=== PATIENT | male | born 1975 | race Caucasian/White ===

== ENCOUNTER → 2017-04-14 | Outpatient (CLI) | payer OTHER ==
[~2017-04-14] MED LIST: LSN/2025 PO; NAPR1TAB9 PO; PRLSR20 PO; TRAM-10 PO
== END | disposition home or self-care (01) ==
LOC: C.LABSPEC 11:28
DX: M25.40 Effusion, unspecified joint (principal)

== ENCOUNTER 2017-04-16 15:22 | Inpatient (IN) | payer OTHER ==
[~2017-04-16] VITALS: Ht 180.3 cm; Wt 123.0 kg
--- NOTE | 2017-04-16 15:33 | HISTORY & PHYSICAL EXAMINATION ---
DATE OF ADMISSION: 04/16/2017 CHIEF COMPLAINT: Right knee pain and swelling. HISTORY OF PRESENT ILLNESS: The patient is a 41-year-old male presented to our office recently for evaluation of right knee pain and swelling. He did not have a significant injury. 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 Dr. Martinez aspirated his knee and the culture demonstrates rare staph aureus as well as a white count of approximately 80,000. The patient was seen again in our office today and Dr. Martinez recommending urgent admission to the hospital for IV antibiotics and arthroscopic I&D tomorrow. PAST MEDICAL HISTORY: Hypertension, osteoarthritis, obesity, and acid reflux. PAST SURGICAL HISTORY: Neck surgery, back surgery, ankle surgery, wrist surgery, and knee surgery. MEDICATIONS: Lisinopril 20 mg daily and omeprazole 20 mg daily. ALLERGIES: INCLUDE KEFLEX. SOCIAL HISTORY AND REVIEW OF SYSTEMS: Noncontributory. PHYSICAL EXAMINATION: GENERAL: Well-nourished, well-developed, obese male who appears stated age. HEENT: Normocephalic, atraumatic, extraocular movements intact, oropharynx pink and moist. NECK: Supple without adenopathy. LUNGS: Clear to auscultation bilaterally. HEART: Regular rate and rhythm. ABDOMEN: Soft, nontender, nondistended, obese. EXTREMITIES: The upper extremities are within normal limits. The right knee is moderately painful with recurrent effusion. ASSESSMENT: Septic right knee pus, possible methicillin-resistant staphylococcus aureus infection. PLAN: The above discussed with the patient. Risks versus benefits were discussed. Consent was obtained. The patient's primary care physician is Dr. Green from [facility]. He will be admitted to the hospital. We will consult pharmacy for vancomycin dosing. We will consult infectious disease. We will plan on arthroscopic I&D tomorrow and proceed as indicated.
[2017-04-16 16:07] VITALS: BP 144/86; PULSE 109; TEMP 36.8; O2SAT 95
[2017-04-16] MEDS ORDERED: NURSING VERBAL MED ORDER ONE (16:15)
[2017-04-16] MEDS ORDERED: ONDANSETRON INJ 2 MG/ML 2 ML VIAL IV PRN (16:30)
[2017-04-16] MEDS ORDERED: ACETAMINOPHEN 500 MG TAB PO PRN (16:30)
[2017-04-16] MEDS ORDERED: PATIENT'S HEIGHT AND/OR WEIGHT NEEDED SCH (16:30)
[2017-04-16 16:36] VITALS: BP 144/86; PULSE 109; TEMP 36.8; Ht 180.3 cm; Wt 123.0 kg
[2017-04-16 16:40] VITALS: O2SAT 95
[2017-04-16] MEDS ORDERED: VANCOMYCIN CONSULT ACTIVE PRN (16:45)
[2017-04-16 17:34] LABS: CREATININE 1.02 mg/dl (0.60-1.40)
[2017-04-16] MEDS ORDERED: VANCOMYCIN INJ 2,500 MG in SODIUM CHLORIDE 0.9% 500ML 500 ML IV ONE (17:45)
--- NOTE | 2017-04-16 18:58 | Pharmacy Progress Note ---
Pharmacy Antibiotic Consult Date of Service: Apr 16, 2017. Pharmacy Dosing Scope Pharmacy is consulted to initiate vancomycin IV dosing therapy, order appropriate labs and adjust drug dose/frequency. Subjective The patient is a 41 year old male admitted on Apr 16, 2017 at 15:37. Objective Height (Feet): 5 Height (Inches): 11.00 Weight (Kilograms): 123.000 Lab Results (24hrs): Test 04/16/17 16:53 Creatinine 1.02 mg/dl (0.60-1.40) Est Creatinine Clear Calc Drug Dose 127.2 ml/min Estimated GFR () 105.3 Estimated GFR (Non- 90.9 Micro Results: Date/Time Source Procedure Growth Status 04/16/17 18:15 Nasal MRSA DNA Surveillance Screen Pending Received Assessment & Plan Assessment: 41 yo male direct admit from Dr. Martinez's office Cultures from knee aspirate growing MSSA (sensitivities resulted ~1130 today) Plan for arthroscopic I&D tomorrow Patient with keflex allergy- per patient rxn was swelling/hives as a child, could not find record of any cephalosporins/pcns administration ID consulted, possible deescalation? Plan: Loading dose: 2500 mg (20mg/kg) IV X 1 dose then: 1500 mg ( 12mg/kg) IV every 8 hours. Population PK: SCr 1.02, CrCl age max 114 ml/min, ke 0.75063, t1/2 ~7 hrs Patient at risk for accumulation with BMI > 35 Goal trough level estimate: between 15-20 mcg/mL. Trough level ordered for 04/18 @ 0030 Pharmacy will continue to follow and will adjust dose/frequency as necessary. Thank you
[2017-04-16] MEDS: OXYCODONE HCL IR 5 MG TAB (IMMEDIATE RELEASE) PO PRN (20:48)
[2017-04-16 23:26] VITALS: BP 142/80; PULSE 94; TEMP 37; O2SAT 96
[2017-04-17] VITALS (8 sets, daily range): BP systolic 108–145; BP diastolic 65–85; PULSE 62–89; TEMP 36.5–36.8; O2SAT 93–100
[2017-04-17] MEDS: SODIUM CHLORIDE 0.9% 1000ML 1,000 ML IV SCH ×2 (00:06→08:26)
[2017-04-17] MEDS: VANCOMYCIN INJ 1,500 MG in SODIUM CHLORIDE 0.9% 500ML 500 ML IV SCH ×3 (01:08→17:34)
[2017-04-17] MEDS: OXYCODONE HCL IR 5 MG TAB (IMMEDIATE RELEASE) PO PRN ×3 (01:13→19:40)
[2017-04-17] MEDS ORDERED: MoRPHine SULFATE 2 MG/ML CARP ONE (08:07)
[2017-04-17] MEDS ORDERED: NURSING VERBAL MED ORDER ONE ×2 (08:15→18:00)
[2017-04-17] MEDS ORDERED: MoRPHine SULFATE 2 MG/ML CARP IV PRN (08:15)
[2017-04-17] MEDS: LISINOPRIL 20 MG TAB PO SCH (08:19)
[2017-04-17] MEDS: PANTOprazole SOD 40 MG TAB PO SCH (08:20)
[2017-04-17 08:27] LABS: CREATININE 0.82 mg/dl (0.60-1.40)
--- NOTE | 2017-04-17 10:32 | Medical Consult ---
Consultation Date of Consultation: Apr 17, 2017. Attending Physician: Tyrel Martinez M.D. Reason for Consultation: Septic right knee History of Present Illness 41-year-old male with history of hypertension, GERD, otherwise in good health, status post right ankle and foot surgery in the summer of last year, subsequently developed recurrent skin infections with MRSA requiring drainage in IV antibiotics. Recently suffered fall with pain in his right knee. Did not respond to conservative therapy, was seen by Orthopedic surgery earlier this week with aspiration done with finding of purulent fluid. Cultures now growing a methicillin sensitive Staph aureus. Patient has felt unwell, possible low-grade fever, no recurrent skin infections recently. Has had arthroscopy several times on the right knee but no hardware in place. He is awaiting arthroscopic drainage later today. Currently on IV vancomycin. Has report of significant allergy to cephalexin. Past Medical/Surgical History Medical Problems: (1) Fatigue Status: Acute (2) Heat exhaustion Status: Acute PAST MEDICAL HISTORY: Hypertension, osteoarthritis, obesity, and acid reflux. PAST SURGICAL HISTORY: Neck surgery, back surgery, ankle surgery, wrist surgery, and knee surgery. Family History Diabetes mellitus Both sides Hypertension MOTHER BROTHER Social History Smoking Status: Current Every Day Smoker Drug Use: none Marital Status: Housing Status: lives with family Occupation Status: employed Allergies Coded Allergies: Cephalexin (Verified Allergy, Unknown, UNKNOWN, 10/26/15) Current Inpatient Medications Current Inpatient Medications Medications (Trade) Dose Ordered Sig/Kb Route Start Time Stop Time Status Last Admin Dose Admin Lisinopril (Zestril Tab) 20 mg DAILY PO 04/17/17 09:00 05/17/17 08:59 Pantoprazole Sodium (Protonix Tab) 40 mg QAM PO 04/17/17 09:00 05/17/17 08:59 Oxycodone HCl (Roxicodone Immediate Rel Tab) `1-2 tabs for pain 1 tab ... Q4H PRN PO 04/16/17 16:30 04/30/17 16:29 04/17/17 01:13 10 MG Acetaminophen (Tylenol Tab) 1,000 mg Q8H PRN PO 04/16/17 16:30 05/16/17 16:29 Ondansetron HCl (Zofran Inj) 4 mg Q6H PRN IV 04/16/17 16:30 05/16/17 16:29 Sodium Chloride 1,000 ml @ 100 mls/hr Q10H IV 04/17/17 00:00 05/17/17 00:00 04/17/17 08:26 100 MLS/HR Miscellaneous Information (Consult) 1 ea UD PRN N/A 04/16/17 16:45 05/16/17 16:44 Vancomycin HCl 1500 mg/Sodium Chloride 530 ml @ 200 mls/hr Q8H IV 04/17/17 01:00 05/29/17 00:59 04/17/17 08:26 200 MLS/HR Morphine Sulfate (MoRPHine SULFATE INJ) 1-2 MG Q3H PRN PAIN 1... Q3H PRN IV 04/17/17 08:15 05/01/17 08:14 Review of Systems All systems were reviewed and are negative except as per HPI Physical Exam Date Time Temp Pulse Resp B/P (MAP) Pulse Ox O2 Delivery O2 Flow Rate FiO2 04/17/17 07:46 36.6 68 16 116/70 (85) 95 Room Air 04/17/17 07:35 Room Air 04/17/17 00:13 Room Air 04/16/17 23:26 37.0 94 18 142/80 (100) 96 Room Air 04/16/17 16:40 95 Room Air 04/16/17 16:36 36.8 109 18 144/86 Room Air 04/16/17 16:07 36.8 109 18 144/86 (105) 95 Room Air General Appearance: WD/WN, no apparent distress Head: normocephalic, atraumatic Eyes: normal inspection, EOMI, sclerae normal ENT: normal ENT inspection, hearing grossly normal, pharynx normal Neck: supple, no adenopathy, thyroid normal, trachea midline Respiratory/Chest: chest non-tender, lungs clear, normal breath sounds, no respiratory distress Cardiovascular: regular rate, rhythm, no gallop, no murmur Abdomen/GI: normal bowel sounds, non tender, soft, no organomegaly Back: normal inspection, no CVA tenderness Extremities/Musculoskelatal: no calf tenderness, normal capillary refill, + pertinent finding (Right knee swelling and increased warmth) Neurologic/Psych: alert, normal mood/affect, oriented x 3 Skin: normal color, warm/dry, no rash Lymphatic: no adenopathy Laboratory Results RUN DATE: 04/16/17 [facility] LAB PAGE 1 RUN TIME: 1118 Specimen Inquiry PATIENT: BREE CROFT LOC: [facility] U # : [id number] AGE/SX: 41/M ROOM: REG : 04/14/[address]: Tyrel Martinez M.D. : 1975 BED: DIS : STATUS: REG CLI TLOC: SPEC #: [id number] LAURA: 04/14/17 STATUS: COMP REQ #: [id number] RECD: 04/14/[address]: Tyrel Martinez M.D. SOURCE: JOINT FLSP ENTR: 04/14/[address]: Diamond Holden, Assigned SPDESC: KNEE RIGHT ORDERED: JNT FL/SP CU/SM Procedure Result Verified Site GRAM STAIN Final 04/14/17-1431 RESULT MANY POLYS NO ORGANISMS SEEN JOINT FLUID/SPACE CULTURE Final 04/16/17-1118 Organism 1 STAPHYLOCOCCUS AUREUS QUANITY RARE SENS SENSITIVITY TO FOLLOW 1. STAPHYLOCOCCUS AUREUS Target Route Dose RX AB Cost M.I.C. IQ ------ ----- ------ -- ------ -------- - ------ TRIMET/SULFA S <=0.5/ 9.5 * OXACILLIN S <=0.25 VANCOMYCIN S 2 ERYTHROMYCIN S <=0.5 TETRACYCLINE S <=4 CLINDAMYCIN S <=0.5 DAPTOMYCIN S <=0.5 S = SENSITIVE I = INTERMEDIATE R = RESISTANT END OF REPORT Last 24 Hours Test 04/16/17 16:53 04/17/17 07:40 Creatinine 1.02 mg/dl 0.82 mg/dl Est Creatinine Clear Calc Drug Dose 127.2 ml/min 158.2 ml/min Estimated GFR () 105.3 127.3 Estimated GFR (Non- 90.9 109.8 Assessment & Plan Septic arthritis involving the right knee with likely methicillin sensitive Staph aureus despite his history of prior MRSA infection. Given his allergy to cephalexin, vancomycin appropriate for now. Awaiting surgical debridement later today. Patient will likely require somewhat prolonged course of IV antibiotics, and will likely need PICC line. Will await operative cultures, but suspect patient will be discharged on daptomycin therapy if possible to allow easiest outpatient administration. Will follow.
[2017-04-17] MEDS ORDERED: FENTANYL CITRATE INJ 50 MCG/1 ML 2 ML VIAL ONE ×2 (12:03→13:17)
[2017-04-17] MEDS ORDERED: GLYCOPYRROLATE INJ 0.2 MG/ML VIAL ONE (12:03)
[2017-04-17] MEDS ORDERED: NEOSTIGMINE METHYLSULFATE 5 MG/5 ML SYR ONE (12:03)
[2017-04-17] MEDS ORDERED: PROPOFOL IV EMULSION 10 MG/ML 20 ML VIAL IV ONE (12:03)
[2017-04-17] MEDS ORDERED: DEXAMETHASONE SOD INJ 4 MG/ML VIAL ONE (12:03)
[2017-04-17] MEDS ORDERED: ONDANSETRON INJ 2 MG/ML 2 ML VIAL ONE (12:03)
[2017-04-17] MEDS ORDERED: LIDOCAINE HCL 2% 2 ML VIAL (20MG/ML) ONE (12:03)
[2017-04-17] MEDS ORDERED: MIDAZOLAM HCL 1 MG/ML 2ML VIAL ONE (12:03)
[2017-04-17] MEDS ORDERED: SUCCINYLCHOLINE CHLORIDE 20 MG/ML 10 ML VIAL IV ONE (12:06)
[2017-04-17] MEDS ORDERED: BACITRACIN 50000 UNIT VIAL ONE (12:09)
--- NOTE | 2017-04-17 12:30 | History & Physical Bridge Note ---
H&P Re-Evaluation Bridge Note: I have examined the patient, reviewed the History & Physical and in the interval since the performance of the History & Physical I have noted the following changes of clinical significance: No changes noted
[2017-04-17] MEDS ORDERED: LARYING-O-JET KIT (LTA) ONE (13:08)
[2017-04-17] MEDS ORDERED: EpHEDrine SULFATE INJ 50 MG/ML AMP IV PRN (13:15)
[2017-04-17] MEDS ORDERED: ATROPINE SULFATE 0.1 MG/ML 5ML SYR IV PRN (13:15)
[2017-04-17] MEDS ORDERED: ONDANSETRON INJ 2 MG/ML 2 ML VIAL IV PRN (13:15)
[2017-04-17] MEDS ORDERED: PROMETHAZINE HCL INJ 12.5 MG in SODIUM CHLORIDE 0.9% 50ML 50 ML IV PRN (13:15)
[2017-04-17] MEDS ORDERED: HYDROmorphone INJ 1 MG/ML SYR IV PRN (13:15)
--- NOTE | 2017-04-17 13:16 | [facility] Post Operative Brief Note ---
Immediate Operative Summary Operative Date Apr 17, 2017. Pre-Operative Diagnosis Septic right knee Post-Operative Diagnosis Same as preop Procedure(s) Performed Right knee arthroscopic irrigation and debridement Surgeon Dr. Martinez Dean Of Men Surgeon(s) none Estimated Blood Loss 20 cc Findings Consistent with Post-Op Diagnosis Specimens cultures of right knee fluid sent for routine gram stain, C&S, anaerobic/ aerobic microbes, and cell count Drains hem Anesthesia Type General Disposition Accompanied Pt To Recover: no Disposition: Recovery Room / PACU
[2017-04-17] MEDS ORDERED: HYDROmorphone INJ 2 MG/ML SYR/VIAL ONE (13:23)
[2017-04-17] MEDS ORDERED: KETOROLAC TROMETHAMINE 30 MG/ML VIAL ONE (13:34)
[2017-04-17] MEDS ORDERED: DexMEDEtomidine HCL IV 100 MCG/ML VIAL IV ONE (13:34)
[2017-04-17] MEDS ORDERED: SODIUM CHLORIDE 0.9% INJ 10 ML VIAL ONE (13:34)
--- NOTE | 2017-04-17 13:38 | OPERATIVE REPORT ---
DATE OF OPERATION: 04/17/2017 PREOPERATIVE DIAGNOSIS: Infected knee, right. POSTOPERATIVE DIAGNOSIS: Infected knee, right. PROCEDURE: Arthroscopic incision and drainage of infected knee, right. SURGEON: Dr. Martinez. ANESTHESIA: General. COMPLICATIONS: None. DESCRIPTION OF PROCEDURE: Following induction of adequate general anesthesia, the patient's right leg was prepped and draped in usual sterile manner. The limb was exsanguinated with elevation and a tourniquet was inflated to 350 mmHg. Anterolateral portal was used for insertion of the arthroscope. Grossly, purulent joint fluid was produced. This was cultured. The shaver blade was then placed through a medial portal and using a shaver blade through and through irrigation was carried out, a total of 6000 mL of saline with bacitracin and 3000 mL of plain saline finally was utilized to thoroughly cleanse the wound. There was noted to be significant degenerative changes, especially laterally where bone on bone changes existed and evidence of a previous subtotal lateral meniscectomy was noted. Some areas of hypertrophic synovium were removed using the shaver blade during the procedure. At the end of the procedure, the knee was totally clear. A small Hemovac drain was placed through the medial portal. The wounds were closed with 4-0 nylon simple suture and this drain was sewed into position. The knee was dressed with Adaptic, 4x4s, sterile Webril and an ABD and a long leg Gonsalo wrap was applied. The patient tolerated the procedure well. I attest to the content of the Intraoperative Record and any orders documented therein. Any exception s are noted below.
[2017-04-17] MEDS ORDERED: ACETAMINOPHEN 1000 MG/100 ML IV IV ONE (13:47)
[2017-04-17] MEDS: FENTANYL CITRATE INJ 50 MCG/1 ML 2 ML VIAL IV PRN ×3 (13:56→14:06)
--- NOTE | 2017-04-17 14:16 | Anesthesiology Progress Note ---
Anesthesia Post Op Note Date & Time Apr 17, 2017 at 14:15 Vital Signs Pain Intensity: 5.0 Vital Signs Past 12 Hours Date Time Temp Pulse Resp B/P (MAP) Pulse Ox O2 Delivery O2 Flow Rate FiO2 04/17/17 13:55 66 19 123/56 96 Nasal Cannula 2 04/17/17 13:45 67 12 111/85 97 Oxymask 10 04/17/17 13:32 82 14 132/83 100 Oxymask 10 04/17/17 13:29 36.3 93 18 137/86 98 Oxymask 10 04/17/17 07:46 36.6 68 16 116/70 (85) 95 Room Air 04/17/17 07:35 Room Air Notes Mental Status: alert / awake / arousable, participated in evaluation Pt Amnestic to Procedure: Yes Nausea / Vomiting: adequately controlled Pain: adequately controlled Airway Patency, RR, SpO2: stable & adequate BP & HR: stable & adequate Hydration State: stable & adequate Anesthetic Complications: no major complications apparent Doing well. Pain much better controlled. VSS.
[2017-04-17] MEDS ORDERED: ACETAMINOPHEN IV 1,000 MG in EMPTY BAG 0 ML IV ONE (14:30)
[2017-04-17] MEDS: ALPRAZOLAM 0.5 MG TAB PO PRN (18:41)
[2017-04-17] MEDS ORDERED: NURSING DECISION MEDICATION ORDER SCH (20:45)
[2017-04-18] MEDS: SODIUM CHLORIDE 0.9% 1000ML 1,000 ML IV SCH ×3 (00:18→21:07)
[2017-04-18] MEDS: OXYCODONE HCL IR 5 MG TAB (IMMEDIATE RELEASE) PO PRN ×4 (00:23→21:08)
[2017-04-18] MEDS ORDERED: VANCOMYCIN TROUGH ONE (00:30)
[2017-04-18] MEDS: VANCOMYCIN INJ 1,500 MG in SODIUM CHLORIDE 0.9% 500ML 500 ML IV SCH ×2 (00:34→09:01)
[2017-04-18 03:49] VITALS: BP 102/68; PULSE 76; TEMP 36.6; O2SAT 96
[2017-04-18 07:18] VITALS: BP 121/76; PULSE 70; TEMP 36.8; O2SAT 97
--- NOTE | 2017-04-18 07:54 | Anesthesiology Progress Note ---
Anesthesia Post Op Note Date & Time Apr 18, 2017 at 07:54 Vital Signs Pain Intensity: 6.0 Vital Signs Past 12 Hours Date Time Temp Pulse Resp B/P (MAP) Pulse Ox O2 Delivery O2 Flow Rate FiO2 04/18/17 07:18 36.8 70 16 121/76 (91) 97 Room Air 04/18/17 03:49 36.6 76 17 102/68 (79) 96 Room Air 04/18/17 00:38 Room Air 04/17/17 23:23 36.6 89 16 113/65 (81) 93 Room Air Notes Mental Status: alert / awake / arousable, participated in evaluation Pt Amnestic to Procedure: Yes Nausea / Vomiting: adequately controlled Pain: adequately controlled Airway Patency, RR, SpO2: stable & adequate BP & HR: stable & adequate Hydration State: stable & adequate Anesthetic Complications: no major complications apparent
--- NOTE | 2017-04-18 08:02 | Orthopedic Progress Note ---
Orthopedic Progress Note Date of Service Apr 18, 2017. Subjective Reports: feeling well Objective N/V intact, dressing C/D/I (Hemovac in place, 40 ml output overnight), toes mobile Date Time Temp Pulse Resp B/P (MAP) Pulse Ox O2 Delivery O2 Flow Rate FiO2 04/18/17 07:18 36.8 70 16 121/76 (91) 97 Room Air 04/18/17 03:49 36.6 76 17 102/68 (79) 96 Room Air 04/18/17 00:38 Room Air 04/17/17 23:23 36.6 89 16 113/65 (81) 93 Room Air 04/17/17 19:30 36.8 84 18 145/79 (101) 97 Room Air 04/17/17 17:44 36.6 81 18 122/69 (86) 93 Room Air 04/17/17 16:47 36.7 76 16 108/67 (81) 97 Nasal Cannula 2.0 04/17/17 16:09 36.6 80 16 143/85 (104) 94 Room Air 04/17/17 15:25 36.5 62 16 119/71 (87) 98 Room Air 04/17/17 15:25 Room Air 3.0 04/17/17 14:45 100 Nasal Cannula 3.0 04/17/17 14:45 36.5 73 16 115/75 (88) 100 Nasal Cannula 3.0 04/17/17 14:31 62 14 125/77 98 Nasal Cannula 2 04/17/17 14:26 36.6 67 12 129/83 98 Nasal Cannula 2 04/17/17 14:15 59 14 128/79 96 Nasal Cannula 2 04/17/17 14:05 62 13 117/70 97 Nasal Cannula 2 04/17/17 13:55 66 19 123/56 96 Nasal Cannula 2 04/17/17 13:45 67 12 111/85 97 Oxymask 10 04/17/17 13:32 82 14 132/83 100 Oxymask 10 04/17/17 13:29 36.3 93 18 137/86 98 Oxymask 10 Additional Notes: In office culture: MSSA, currently on Vanco. Intra-op gram stain: gram positive cocci, culture pending Assessment & Plan Assessment: 41 yo male with MSSA septic right knee Plan: 1. Med management- appreciate ID input, picc line to be ordered 2. DVT prophylaxis- ASA, SCDs 3. D/C planning: pt to require 6 weeks IV abx
[2017-04-18 08:49] LABS: CREATININE 0.84 mg/dl (0.60-1.40)
[2017-04-18] MEDS: PANTOprazole SOD 40 MG TAB PO SCH (09:01)
[2017-04-18] MEDS: LISINOPRIL 20 MG TAB PO SCH (09:01)
[2017-04-18] MEDS: ALPRAZOLAM 0.5 MG TAB PO PRN ×2 (09:55→23:37)
[2017-04-18] MEDS: ASPIRIN/ALUM/MAGNES/CAL CARB 325 MG TAB PO SCH (10:48)
[2017-04-18 10:58] VITALS: BP 147/90; PULSE 78; TEMP 36.6; O2SAT 99
--- NOTE | 2017-04-18 13:29 | Pharmacy Progress Note ---
Pharmacy Antibiotic Prog Note Date of Service Apr 18, 2017. Subjective The patient is currently receiving vancomycin 1500 mg IV every 8 hours. The patient is currently on day # 3 of vancomycin IV therapy for infected R knee. Objective Height (Feet): 5 Height (Inches): 11.00 Weight (Kilograms): 123.000 Levels: Item Value Date Time Vancomycin Level Trough 20.3 mcg/ml 04/18/17 0024 Previous dose hung 04/17 @1734. Lab Results (24hrs): Test 04/18/17 00:24 04/18/17 07:55 Vancomycin Level Trough 20.3 mcg/ml (SEE COMMENT) Creatinine 0.84 mg/dl (0.60-1.40) Est Creatinine Clear Calc Drug Dose 154.5 ml/min Estimated GFR () 126.0 Estimated GFR (Non- 108.8 Micro Results: 04/14 joint fluid R knee MSSA 04/17 joint fluid R knee S. aureus, sens pending Recent Pertinent Medications Item Value Date Time Vancomycin HCl 540 ml @ 200 mls/hr 04/18/17 2100 2000 mg/Sodium Q12/IV Chloride Vancomycin HCl 530 ml @ 200 mls/hr 04/17/17 0100 1500 mg/Sodium Q8H/IV 04/18/17 0901 Chloride Assessment & Plan This drug level is: a bit Supratherapeutic. To decrease risk of accumulation, will extend dosing interval and decrease total daily dose. Change to vancomycin 2000 mg IV every 12 hours. Goal trough level estimate: between 15-20 mcg/mL. Trough has been ordered for: 04/20 before 0900 dose. Pharmacy will continue to follow and will adjust dose/frequency as necessary. Thank you
[2017-04-18 15:04] VITALS: BP 115/71; PULSE 79; TEMP 36.6; O2SAT 95
--- NOTE | 2017-04-18 19:26 | Infectious Disease Progress Nt ---
Progress Note Date of Service Apr 18, 2017. Subjective Pt evaluation today including: conversation w/ patient, physical exam, chart review, lab review, review of studies, conversation w/ it web development consultant, review of inpatient medication list Patient offers no new complaints today. Remains afebrile. Cultures growing Staph aureus. All Other Systems: Reviewed and Negative Medications Current Inpatient Medications Medications (Trade) Dose Ordered Sig/Kb Route Start Time Stop Time Status Last Admin Dose Admin Lisinopril (Zestril Tab) 20 mg DAILY PO 04/17/17 09:00 05/17/17 08:59 04/18/17 09:01 20 MG Pantoprazole Sodium (Protonix Tab) 40 mg QAM PO 04/17/17 09:00 05/17/17 08:59 04/18/17 09:01 40 MG Oxycodone HCl (Roxicodone Immediate Rel Tab) `1-2 tabs for pain 1 tab ... Q4H PRN PO 04/16/17 16:30 04/30/17 16:29 04/18/17 15:32 10 MG Acetaminophen (Tylenol Tab) 1,000 mg Q8H PRN PO 04/16/17 16:30 05/16/17 16:29 Ondansetron HCl (Zofran Inj) 4 mg Q6H PRN IV 04/16/17 16:30 05/16/17 16:29 04/18/17 15:32 4 MG Sodium Chloride 1,000 ml @ 100 mls/hr Q10H IV 04/17/17 00:00 05/17/17 00:00 04/18/17 00:18 100 MLS/HR Miscellaneous Information (Consult) 1 ea UD PRN N/A 04/16/17 16:45 05/16/17 16:44 Morphine Sulfate (MoRPHine SULFATE INJ) 1-2 MG Q3H PRN PAIN 1... Q3H PRN IV 04/17/17 08:15 05/01/17 08:14 Alprazolam (Xanax Tab) 1 mg Q8H PRN PO 04/17/17 18:15 05/17/17 18:14 04/18/17 09:55 1 MG Aspirin/Aluminum/ Magnesium/Ca Carb (Ascriptin Tab) 325 mg DAILY PO 04/18/17 09:00 05/18/17 08:59 04/18/17 10:48 325 MG Vancomycin HCl 2000 mg/Sodium Chloride 540 ml @ 200 mls/hr Q12 IV 04/18/17 21:00 05/28/17 20:59 Objective Vital Signs Date Time Temp Pulse Resp B/P (MAP) Pulse Ox O2 Delivery O2 Flow Rate FiO2 04/18/17 15:30 Room Air 04/18/17 15:04 36.6 79 16 115/71 (86) 95 Room Air 04/18/17 10:58 36.6 78 20 147/90 (109) 99 Room Air 04/18/17 07:31 Room Air 04/18/17 07:18 36.8 70 16 121/76 (91) 97 Room Air 04/18/17 03:49 36.6 76 17 102/68 (79) 96 Room Air 04/18/17 00:38 Room Air 04/17/17 23:23 36.6 89 16 113/65 (81) 93 Room Air 04/17/17 19:30 36.8 84 18 145/79 (101) 97 Room Air Physical Exam General Appearance: WD/WN, no apparent distress Eyes: normal inspection, EOMI, sclerae normal ENT: normal ENT inspection, pharynx normal Neck: supple, no adenopathy, thyroid normal Respiratory/Chest: chest non-tender, lungs clear, normal breath sounds, no respiratory distress, no accessory muscle use Cardiovascular: regular rate, rhythm, no gallop, no murmur Abdomen: normal bowel sounds, non tender, soft, no organomegaly Extremities: non-tender, no calf tenderness, normal capillary refill Neurologic/Psychiatric: alert, normal mood/affect, oriented x 3 Skin: normal color, warm/dry, no rash, + pertinent finding (Surgical dressing intact) Lymphatic: no adenopathy Laboratory Results Last 24 Hours Test 04/18/17 00:24 04/18/17 07:55 Vancomycin Level Trough 20.3 mcg/ml Creatinine 0.84 mg/dl Est Creatinine Clear Calc Drug Dose 154.5 ml/min Estimated GFR () 126.0 Estimated GFR (Non- 108.8 Assessment and Plan Septic arthritis involving the right knee with likely methicillin sensitive Staph aureus despite his history of prior MRSA infection. Given his allergy to cephalexin, vancomycin appropriate for now. S/P surgical debridement. Patient will likely require somewhat prolonged course of IV antibiotics, and will likely need PICC line. Will await operative cultures, but suspect patient will be discharged on daptomycin therapy if possible to allow easiest outpatient administration. Will follow.
[2017-04-18] MEDS: VANCOMYCIN INJ 2,000 MG in SODIUM CHLORIDE 0.9% 500ML 500 ML IV SCH (21:22)
[2017-04-18 23:15] VITALS: BP 118/69; PULSE 81; TEMP 36.7; O2SAT 95
[2017-04-19 07:19] VITALS: BP 121/77; PULSE 67; TEMP 36.6; O2SAT 96
[2017-04-19] MEDS: OXYCODONE HCL IR 5 MG TAB (IMMEDIATE RELEASE) PO PRN ×3 (07:35→18:39)
[2017-04-19] MEDS: PANTOprazole SOD 40 MG TAB PO SCH (07:36)
[2017-04-19] MEDS: LISINOPRIL 20 MG TAB PO SCH (07:36)
[2017-04-19] MEDS: ASPIRIN/ALUM/MAGNES/CAL CARB 325 MG TAB PO SCH (07:37)
[2017-04-19] MEDS: SODIUM CHLORIDE 0.9% 1000ML 1,000 ML IV SCH ×2 (07:41→16:24)
[2017-04-19] MEDS: VANCOMYCIN INJ 2,000 MG in SODIUM CHLORIDE 0.9% 500ML 500 ML IV SCH ×2 (09:33→20:38)
--- NOTE | 2017-04-19 09:47 | Orthopedic Progress Note ---
Orthopedic Progress Note Date of Service Apr 19, 2017. Subjective Post OP Day: 2 Reports: feeling well, Denies: chest pain, SOB, nausea / vomiting, light headedness, calf pain Additional Notes: HAVING PAIN BUT HAS A SEVERELY ARTHRITIC KNEE WITH PAIN AT BASELINE. Objective calves soft nontender, N/V intact, capillary refill less than 2 sec., incision C /D/I, A&O x3 Date Time Temp Pulse Resp B/P (MAP) Pulse Ox O2 Delivery O2 Flow Rate FiO2 04/19/17 08:00 Room Air 04/19/17 07:19 36.6 67 16 121/77 (92) 96 Room Air 04/18/17 23:25 Room Air 04/18/17 23:15 36.7 81 14 118/69 (85) 95 Room Air 04/18/17 15:30 Room Air 04/18/17 15:04 36.6 79 16 115/71 (86) 95 Room Air 04/18/17 10:58 36.6 78 20 147/90 (109) 99 Room Air Additional Notes: GRAM STAIN Final 04/18/17-851 RESULT MANY POLYS RARE GRAM POSITIVE COCCI Phoned results to HIPOLITO DIAZ on 04/18/17 at 0851 by Velma Jensen. Results were verbalized back to [facility]. * This is a corrected result. * A prior result that was reported as final has been changed. OR AER/HEDY CULT Preliminary 04/19/17 Organism 1 STAPHYLOCOCCUS AUREUS QUANITY FEW SENS SENSITIVITY TO FOLLOW 1. STAPHYLOCOCCUS AUREUS Target Route Dose RX AB Cost M.I.C. IQ ------ ----- ------ -- ------ -------- - ------ TRIMET/SULFA S <=0.5/ 9.5 * OXACILLIN S 0.5 VANCOMYCIN S 2 ERYTHROMYCIN S <=0.5 TETRACYCLINE S <=4 CLINDAMYCIN S <=0.5 DAPTOMYCIN S <=0.5 S = SENSITIVE I = INTERMEDIATE R = RESISTANT Assessment & Plan Assessment: 41 yo male with MSSA septic right knee POD#2 SP ARTHROSCOPIC I&D RIGHT KNEE Plan: 1. Med management- appreciate ID input, picc line to be ordered 2. DVT prophylaxis- ASA, SCDs 3. D/C planning: pt to require 6 weeks IV abx, PICC LINE PLACED 4. APPRECIATE DR. KOROMA INPUT. CONT IV VANCO FOR NOW, LIKELY DAPTO ON DC. 5. REFERRAL PLACED TO [facility]. WAITING ON ACCEPTANCE. PATIENT HAS 100% FOR HOME IVS BACKUP. 6. DRESSING CHANGED THIS AM. WILL KEEP HEMOVAC (SEWN IN) IN PLACE UNTIL ZERO OUTPUT. IF CONTINUES TO IMPROVE MAY CONSIDER TRANSFER TOMORROW IF ACCEPTED.
[2017-04-19] MEDS: ALPRAZOLAM 0.5 MG TAB PO PRN ×2 (10:02→20:39)
[2017-04-19 15:55] VITALS: BP 127/73; PULSE 72; TEMP 36.8; O2SAT 96
[2017-04-19] MEDS ORDERED: NURSING VERBAL MED ORDER ONE (17:30)
[2017-04-19] MEDS: HYDROmorphone INJ 0.5 MG/0.5 ML SYR IV PRN ×2 (20:39→23:59)
[2017-04-19 23:27] VITALS: BP 115/70; PULSE 77; TEMP 36.6; O2SAT 95
[2017-04-20] MEDS: SODIUM CHLORIDE 0.9% 1000ML 1,000 ML IV SCH ×3 (02:29→21:33)
[2017-04-20 07:20] VITALS: BP 139/86; PULSE 74; TEMP 36.7; O2SAT 95
[2017-04-20] MEDS ORDERED: VANCOMYCIN TROUGH ONE (08:30)
[2017-04-20] MEDS: HYDROmorphone INJ 0.5 MG/0.5 ML SYR IV PRN ×3 (08:52→19:50)
[2017-04-20 09:06] LABS: CREATININE 0.84 mg/dl (0.60-1.40)
--- NOTE | 2017-04-20 09:38 | Orthopedic Progress Note ---
Orthopedic Progress Note Date of Service Apr 20, 2017. Subjective Post OP Day: 3 Reports: feeling well, Denies: chest pain, SOB, nausea / vomiting, light headedness, calf pain Objective calves soft nontender, N/V intact, capillary refill less than 2 sec., dressing C /D/I, incision C/D/I, A&O x3 Date Time Temp Pulse Resp B/P (MAP) Pulse Ox O2 Delivery O2 Flow Rate FiO2 04/20/17 07:20 36.7 74 17 139/86 (103) 95 Room Air 04/19/17 23:43 Room Air 04/19/17 23:27 36.6 77 14 115/70 (85) 95 Room Air 04/19/17 16:30 Room Air 04/19/17 15:55 36.8 72 18 127/73 (91) 96 Room Air Assessment & Plan Assessment: 41 yo male with MSSA septic right knee POD#3 SP ARTHROSCOPIC I&D RIGHT KNEE Plan: 1. Med management- appreciate ID input, picc line IN 2. DVT prophylaxis- ASA, SCDs 3. D/C planning: pt to require 6 weeks IV abx 4. APPRECIATE DR. KOROMA INPUT. CONT IV VANCO FOR NOW, LIKELY DAPTO ON DC. 5. REFERRAL PLACED TO [facility]. WAITING ON ACCEPTANCE. PATIENT HAS 100% FOR HOME IVS BACKUP. 6. DRESSING CHANGED THIS AM. HEMOVAC DC'D. IF CONTINUES TO IMPROVE MAY CONSIDER TRANSFER TOMORROW IF ACCEPTED. 7. REGULAR DIET
[2017-04-20] MEDS: OXYCODONE HCL IR 5 MG TAB (IMMEDIATE RELEASE) PO PRN ×3 (11:46→21:33)
[2017-04-20] MEDS: ALPRAZOLAM 0.5 MG TAB PO PRN ×2 (11:46→21:33)
[2017-04-20] MEDS: PANTOprazole SOD 40 MG TAB PO SCH (12:34)
[2017-04-20] MEDS: ASPIRIN/ALUM/MAGNES/CAL CARB 325 MG TAB PO SCH (12:34)
[2017-04-20] MEDS: VANCOMYCIN INJ 2,000 MG in SODIUM CHLORIDE 0.9% 500ML 500 ML IV SCH (12:34)
[2017-04-20] MEDS: LISINOPRIL 20 MG TAB PO SCH (12:35)
--- NOTE | 2017-04-20 13:26 | Pharmacy Progress Note ---
Pharmacy Abx Dose Short Note Date of Service Apr 20, 2017. Assessment & Plan Assessment 41 year old male receiving vancomycin for treatment of MSSA joint infection Day # 5 of antimicrobial therapy. Plan to switch to daptomycin outpatient Plan Vancomycin * Trough level of 13.6 mcg/mL * Change to 1750 mg IV every 10 hours * SCr stable * Goal trough level 15-20 mcg/mL * Trough ordered for 04/21 @ 2330 Pharmacy will continue to follow and will adjust dose/frequency as necessary. Thank you.
[2017-04-20 15:30] VITALS: BP 132/77; PULSE 87; TEMP 36.8; O2SAT 97
[2017-04-20] MEDS: VANCOMYCIN INJ 1,750 MG in SODIUM CHLORIDE 0.9% 500ML 500 ML IV SCH (18:35)
[2017-04-20 22:50] VITALS: BP 120/68; PULSE 77; TEMP 36.8; O2SAT 94
[2017-04-21] MEDS: VANCOMYCIN INJ 1,750 MG in SODIUM CHLORIDE 0.9% 500ML 500 ML IV SCH (03:34)
[2017-04-21 06:08] LABS: CREATININE 0.83 mg/dl (0.60-1.40)
[2017-04-21 07:00] VITALS: BP 103/66; TEMP 36.8; O2SAT 94
[2017-04-21 08:30] VITALS: O2SAT 94
[2017-04-21] MEDS: SODIUM CHLORIDE 0.9% 1000ML 1,000 ML IV SCH ×2 (08:33→18:06)
[2017-04-21 09:10] VITALS: BP 137/84; PULSE 77
[2017-04-21] MEDS: LISINOPRIL 20 MG TAB PO SCH (09:11)
[2017-04-21] MEDS: PANTOprazole SOD 40 MG TAB PO SCH (09:11)
[2017-04-21] MEDS: ASPIRIN/ALUM/MAGNES/CAL CARB 325 MG TAB PO SCH (09:12)
[2017-04-21] MEDS: ALPRAZOLAM 0.5 MG TAB PO PRN ×2 (09:18→18:18)
[2017-04-21] MEDS: OXYCODONE HCL IR 5 MG TAB (IMMEDIATE RELEASE) PO PRN ×3 (09:18→21:21)
[2017-04-21] MEDS: DAPTOMYCIN IV SCH (11:58)
--- NOTE | 2017-04-21 12:56 | Orthopedic Progress Note ---
Orthopedic Progress Note Date of Service Apr 21, 2017. Subjective Post OP Day: 4 Reports: feeling well, Denies: chest pain, SOB, nausea / vomiting, light headedness, calf pain Objective calves soft nontender, N/V intact, capillary refill less than 2 sec., incision C /D/I, A&O x3, toes mobile Date Time Temp Pulse Resp B/P (MAP) Pulse Ox O2 Delivery O2 Flow Rate FiO2 04/21/17 09:10 77 137/84 (101) 04/21/17 08:30 94 Room Air 04/21/17 07:00 36.8 16 103/66 (78) 94 Room Air 04/21/17 00:05 Room Air 04/20/17 22:50 36.8 77 18 120/68 (85) 94 Room Air 04/20/17 16:00 Room Air 04/20/17 15:30 36.8 87 20 132/77 (95) 97 Room Air Assessment & Plan Assessment: 41 yo male with MSSA septic right knee POD#4 SP ARTHROSCOPIC I&D RIGHT KNEE Plan: 1. Med management- appreciate ID input, picc line IN 2. DVT prophylaxis- ASA, SCDs 3. D/C planning: pt to require 6 weeks IV abx 4. APPRECIATE DR. KOROMA INPUT.SWITCHED TO DAPTO TODAY SO HE CAN HAVE A DOSE BEFORE DC. 5. REFERRAL PLACED TO [facility]. WAITING ON ACCEPTANCE. PATIENT HAS 100% FOR HOME IVS BACKUP. 6. STABLE FOR DC ONCE DISPOSITION DETERMINED.
[2017-04-21] MEDS ORDERED: DAPT500I IV (12:57)
[2017-04-21] MEDS ORDERED: RXC5 PO (12:57)
[2017-04-21] MEDS ORDERED: ASPI325T60 PO (12:57)
[2017-04-21] MEDS ORDERED: ACET-24 PO (12:57)
--- NOTE | 2017-04-21 13:03 | Discharge Instructions ---
Discharge Instructions Date of Service Apr 21, 2017. Admission Reason for Admission: Septic Knee Joint Discharge Discharge Diagnosis / Problem: SEPTIC RIGHT KNEE Discharge Goals Goal(s): Decrease discomfort, Improve function, Increase independence Activity Recommendations Activity Limitations: per Instructions/Follow-up section . Instructions / Follow-Up Instructions / Follow-Up ACTIVITY RECOMMENDATIONS: * You may walk on the leg with or without crutches as comfort permits. * Bending of the knee should start at once. * Do not shower for 48 hours following surgery. SPECIAL CARE INSTRUCTIONS: * You may cleanse the skin adjacent to the small wounds with soap and water at the time of the first dressing change. * The application of an ice bag to the front and sides of the knee will decrease swelling and discomfort for the first 48 hours. * The small incisions may be sore and develop bruising. This bruising does not require any special care. SPECIAL PRECAUTIONS: * If you experience unusual pain unrelieved by prescriptions, temperature elevation (100 degrees F. or above) or progressive swelling or bleeding, you should contact our office at for further evaluation. * You may have been prescribed pain medication. If you experience nausea and/or fine skin rash, discontinue this medication and contact our office at for an alternate medication. DRESSING: * Dressing should be comfortable and absorb any leakage of fluid and/or blood. * The dressing may become moist or bloodstained. * Dressing may be removed __ after surgery and bandaids placed over the small surgical incisions. If can be removed sooner if it becomes very soiled or loose. * Bandaids may be used over next several days as needed and can be discontinued when there is not further drainage from the wounds. *CONTINUE IV ANTIBIOTICS X 6 WEEKS. *HOME NURSING TO CARE FOR PICC LINE, BLOOD WORK. FOLLOW UP VISIT: If appointment is not already scheduled: Please call [facility] to make a follow-up appointment for your surgery at . Current Hospital Diet Patient's current hospital diet: Regular Diet Discharge Diet Recommended Diet: Regular Diet Procedures Procedures Performed: Right knee arthroscopic irrigation and debridement Pending Studies Studies pending at discharge: no Medical Emergencies . Who to Call and When: Medical Emergencies: If at any time you feel your situation is an emergency, please call [phone] immediately. . Non-Emergent Contact Non-Emergency issues call your: Surgeon . "Provider Documentation" section prepared by Christa Vasquez. . VTE Core Measure Inpt VTE Proph given/why not?: M[facility]AMA [facility] [place] Drug Monitoring Program Search Results: patient reviewed within database, no issues identified
--- NOTE | 2017-04-21 13:36 | Infectious Disease Progress Nt ---
Progress Note Date of Service Apr 21, 2017. Subjective Pt evaluation today including: conversation w/ patient, physical exam, chart review, lab review, review of studies, conversation w/ [employer] sales consultant, review of inpatient medication list Offers no new complaints today. Pain controlled. Remains afebrile. Has tolerated 1st dose of daptomycin. All Other Systems: Reviewed and Negative Medications Current Inpatient Medications Medications (Trade) Dose Ordered Sig/Kb Route Start Time Stop Time Status Last Admin Dose Admin Lisinopril (Zestril Tab) 20 mg DAILY PO 04/17/17 09:00 05/17/17 08:59 04/21/17 09:11 20 MG Pantoprazole Sodium (Protonix Tab) 40 mg QAM PO 04/17/17 09:00 05/17/17 08:59 04/21/17 09:11 40 MG Oxycodone HCl (Roxicodone Immediate Rel Tab) `1-2 tabs for pain 1 tab ... Q4H PRN PO 04/16/17 16:30 04/30/17 16:29 04/21/17 09:18 10 MG Acetaminophen (Tylenol Tab) 1,000 mg Q8H PRN PO 04/16/17 16:30 05/16/17 16:29 04/19/17 16:29 1,000 MG Ondansetron HCl (Zofran Inj) 4 mg Q6H PRN IV 04/16/17 16:30 05/16/17 16:29 04/18/17 15:32 4 MG Sodium Chloride 1,000 ml @ 100 mls/hr Q10H IV 04/17/17 00:00 05/17/17 00:00 04/21/17 08:33 100 MLS/HR Alprazolam (Xanax Tab) 1 mg Q8H PRN PO 04/17/17 18:15 05/17/17 18:14 04/21/17 09:18 1 MG Aspirin/Aluminum/ Magnesium/Ca Carb (Ascriptin Tab) 325 mg DAILY PO 04/18/17 09:00 05/18/17 08:59 04/21/17 09:12 325 MG Heparin Sodium (Porcine) (Heparin 10 Unit/ ml 5 ml Flush) 5 ml PRN PRN FLUSH 04/18/17 20:30 05/18/17 20:29 Hydromorphone HCl (Dilaudid Inj) 0.2 mg Q3H PRN IV 04/19/17 17:30 05/03/17 17:29 04/20/17 19:50 0.2 MG Daptomycin 740 mg/ Syringe 14.8 ml @ 7.4 mls/min Q24H IV 04/21/17 12:00 06/02/17 11:59 04/21/17 11:58 7.4 MLS/MIN Objective Vital Signs Date Time Temp Pulse Resp B/P (MAP) Pulse Ox O2 Delivery O2 Flow Rate FiO2 04/21/17 09:10 77 137/84 (101) 04/21/17 08:30 94 Room Air 04/21/17 07:00 36.8 16 103/66 (78) 94 Room Air 04/21/17 00:05 Room Air 04/20/17 22:50 36.8 77 18 120/68 (85) 94 Room Air 04/20/17 16:00 Room Air 04/20/17 15:30 36.8 87 20 132/77 (95) 97 Room Air Physical Exam General Appearance: WD/WN, no apparent distress Eyes: normal inspection, EOMI, sclerae normal ENT: normal ENT inspection, hearing grossly normal, pharynx normal Neck: supple, no adenopathy, thyroid normal, trachea midline Respiratory/Chest: chest non-tender, lungs clear, normal breath sounds, no respiratory distress Cardiovascular: regular rate, rhythm, no gallop, no murmur Abdomen: normal bowel sounds, non tender, soft, no organomegaly Extremities: non-tender, no calf tenderness, normal capillary refill Neurologic/Psychiatric: alert, normal mood/affect, oriented x 3 Skin: normal color, no rash, + pertinent finding (Surgical dressing intact) Lymphatic: no adenopathy Laboratory Results RUN DATE: 04/21/17 [facility] LAB PAGE 1 RUN TIME: 1503 Specimen Inquiry PATIENT: BREE CROFT LOC: BRIAN # : [id number] AGE/SX: 41/M ROOM: [facility] REG : 04/16/[address]: Tyrel Martinez M.D. : 1975 BED: 2 DIS : STATUS: ADM IN TLOC: SPEC #: [id number] LAURA: 04/17/17 STATUS: RES REQ #: [id number] RECD: 04/17/[address]: Tyrel Martinez M.D. SOURCE: JOINT FLSP ENTR: 04/17/[address]: Sheldon Alexander MD SPDES: KNEE RIGHT Joseph Green D.O. ORDERED: AER/HEDY CULTSMR Procedure Result Verified Site GRAM STAIN Final 04/18/17-0852 RESULT MANY POLYS RARE GRAM POSITIVE COCCI Phoned results to HIPOLITO DIAZ on 04/18/17 at 0851 by Velma Jensen. Results were verbalized back to YASMANY. * This is a corrected result. * A prior result that was reported as final has been changed. OR AER/HEDY CULT Preliminary 04/21/17-1503 Organism 1 STAPHYLOCOCCUS AUREUS QUANITY FEW SENS SENSITIVITY TO FOLLOW ANAWolf NO ANAEROBES ISOLATED. 1. STAPHYLOCOCCUS AUREUS Target Route Dose RX AB Cost M.I.C. IQ ------ ----- ------ -- ------ -------- - ------ TRIMET/SULFA S <=0.5/ 9.5 * OXACILLIN S 0.5 VANCOMYCIN S 2 ERYTHROMYCIN S <=0.5 TETRACYCLINE S <=4 CLINDAMYCIN S <=0.5 DAPTOMYCIN S <=0.5 S = SENSITIVE I = INTERMEDIATE R = RESISTANT END OF REPORT Last 24 Hours Test 04/21/17 05:14 Creatinine 0.83 mg/dl Est Creatinine Clear Calc Drug Dose 156.3 ml/min Estimated GFR () 126.7 Estimated GFR (Non- 109.3 Assessment and Plan Septic arthritis involving the right knee with likely methicillin sensitive Staph aureus despite his history of prior MRSA infection. Status post surgical debridement. Patient changed to IV daptomycin to allow easier outpatient therapy, likely 6 weeks of antibiotics. Will monitor renal function CPK levels while on antibiotic. Would like to see in the office in 2 weeks in follow-up.
[2017-04-21 15:10] VITALS: BP 129/78; PULSE 86; TEMP 36.9; O2SAT 95
[2017-04-21] MEDS: HYDROmorphone INJ 0.5 MG/0.5 ML SYR IV PRN (18:19)
[2017-04-21 18:24] VITALS: BP 135/78; PULSE 87; O2SAT 98
[2017-04-21 23:30] VITALS: BP 105/68; PULSE 81; TEMP 36.6; O2SAT 96
[2017-04-21] MEDS ORDERED: VANCOMYCIN TROUGH ONE (23:30)
[2017-04-22] MEDS: SODIUM CHLORIDE 0.9% 1000ML 1,000 ML IV SCH (04:09)
[2017-04-22 06:38] LABS: CREATININE 0.79 mg/dl (0.60-1.40)
[2017-04-22 07:16] VITALS: BP 123/81; PULSE 71; TEMP 36.7; O2SAT 97
[2017-04-22] MEDS: OXYCODONE HCL IR 5 MG TAB (IMMEDIATE RELEASE) PO PRN ×2 (07:42→11:58)
[2017-04-22] MEDS: PANTOprazole SOD 40 MG TAB PO SCH (07:43)
[2017-04-22] MEDS: LISINOPRIL 20 MG TAB PO SCH (07:43)
[2017-04-22] MEDS: ASPIRIN/ALUM/MAGNES/CAL CARB 325 MG TAB PO SCH (07:43)
[2017-04-22] MEDS ORDERED: DAPTOMYCIN IV SCH (09:00)
[2017-04-22] MEDS ORDERED: SODIUM CHLORIDE 0.9% IV SCH (09:00)
--- NOTE | 2017-04-22 10:59 | Orthopedic Progress Note ---
Orthopedic Progress Note Date of Service Apr 22, 2017. Subjective Post OP Day: 5 Reports: feeling well Additional Notes: Some pain in the knee today but otherwise feeling well. Objective calves soft nontender, N/V intact, incision C/D/I, A&O x3, toes mobile New dressing applied Date Time Temp Pulse Resp B/P (MAP) Pulse Ox O2 Delivery O2 Flow Rate FiO2 04/22/17 08:00 Room Air 04/22/17 07:16 36.7 71 18 123/81 (95) 97 Room Air 04/21/17 23:38 Room Air 04/21/17 23:30 36.6 81 18 105/68 (80) 96 Room Air 04/21/17 19:40 Room Air 04/21/17 18:24 87 135/78 (97) 98 Room Air 04/21/17 15:15 Room Air 04/21/17 15:10 36.9 86 18 129/78 (95) 95 Room Air Assessment & Plan Assessment: 41 yo male with MSSA septic right knee POD#5 SP ARTHROSCOPIC I&D RIGHT KNEE Plan: 1. Med management- appreciate ID input, picc line IN 2. DVT prophylaxis- ASA, SCDs 3. D/C planning: pt to require 6 weeks IV abx 4. APPRECIATE DR. KOROMA INPUT.SWITCHED TO DAPTO 5. NO BEDS AVAILABLE AT [facility]. PLAN FOR DC TO HOME WITH HOME HEALTH TODAY Inhouse Planning Pain Management: Dilaudid, PO Tylenol, Oxy IR DVT Prophylaxis: TEDs, SCDs, ASA
[2017-04-22] MEDS: ALPRAZOLAM 0.5 MG TAB PO PRN (11:58)
[2017-04-22] MEDS: DAPTOMYCIN IV SCH (11:58)
[2017-04-22 12:37] VITALS: BP 123/81; PULSE 71; TEMP 36.7; O2SAT 97
== END 2017-04-22 14:02 | disposition home health service (06) | DRG 550 ==
LOC: UNDOADMIN 15:37 → C.MSW 15:37
PROC: 0S9C4ZX Drainage of Right Knee Joint, Percutaneous Endoscopic Approach, Diagnostic (ICD-10-PCS; principal; 2017-04-17 13:15)
PROC: 02HV33Z Insertion of Infusion Device into Superior Vena Cava, Percutaneous Approach (ICD-10-PCS; 2017-04-18)
DX: M00.861 Arthritis due to other bacteria, right knee (principal); B95.61 Methicillin susceptible Staphylococcus aureus infection as the cause of diseases classified elsewhere; I10 Essential (primary) hypertension; K21.9 Gastro-esophageal reflux disease without esophagitis; E66.9 Obesity, unspecified; F17.200 Nicotine dependence, unspecified, uncomplicated; Z79.899 Other long term (current) drug therapy; Z98.890 Other specified postprocedural states; Z68.37 Body mass index [BMI] 37.0-37.9, adult; Z88.1 Allergy status to other antibiotic agents; Z86.14 Personal history of Methicillin resistant Staphylococcus aureus infection

== ENCOUNTER → 2017-05-15 | Day surgery (SDC) | payer OTHER ==
[~2017-05-15] VITALS: Ht 180.3 cm; Wt 122.6 kg
[~2017-05-15] MED LIST changes: +ACET-24 PO; +ASPI325T60 PO; +DAPT500I IV; +ERTAPENEM IV 1,000 MG in SODIUM CHLORIDE 0.9% 50ML 50 ML IV SCH; +RXC5 PO
[2017-05-15 14:53] VITALS: BP 138/85; PULSE 101; TEMP 36.7; O2SAT 99; Ht 180.3 cm; Wt 122.6 kg
[2017-05-15 17:39] VITALS: BP 128/75; PULSE 98; TEMP 36.8; O2SAT 96
== END | disposition home or self-care (01) ==
LOC: C.MTU 14:48
PROVIDERS: ATTEND Internal Medicine Infectious Disease
DX: M00.9 Pyogenic arthritis, unspecified (principal)

== ENCOUNTER 2017-06-04 17:32 | Inpatient (IN) | payer OTHER ==
[~2017-06-04] VITALS: Ht 180.3 cm; Wt 129.8 kg
[~2017-06-04 17:32] MED LIST changes: -ACET-24 PO; -ASPI325T60 PO; -DAPT500I IV; -ERTAPENEM IV 1,000 MG in SODIUM CHLORIDE 0.9% 50ML 50 ML IV SCH; -RXC5 PO; -TRAM-10 PO
[2017-06-04] MEDS ORDERED: FENTANYL CITRATE INJ 50 MCG/1 ML 2 ML VIAL IV STA ×2 (17:54→19:13)
[2017-06-04] MEDS ORDERED: SODIUM CHLORIDE 0.9% 1000ML 1,000 ML IV STA (17:54)
--- NOTE | 2017-06-04 18:12 | EMERGENCY ROOM VISIT NOTE ---
ED Visit Note First contact with patient: 17:40 CHIEF COMPLAINT: Right knee pain and swelling HISTORY OF PRESENTING ILLNESS: This is a 42-year-old male who presents to the emergency department with complaint of right knee pain and swelling that started 2 days ago. Patient reports a history of MRSA infections stemming from an ankle surgery a year ago. He states that he had a staph infection in his right knee 2 months ago that was washed out in the OR on April 17. He had been on IV antibiotics with PICC line at home, however he reports these were discontinued approximately 1 week ago. He is followed by infectious disease, Dr. Alexander. He states the pain has been constant and progressively worsening, aching and throbbing, today he is unable to fully straighten or bend the knee due to pain and swelling. He rates his pain as he has tried Tylenol and ibuprofen with no improvement. He denies any fevers, but states he has been having some chills and sweats. He denies any symptoms of headache, chest pain, shortness of breath, abdominal pain, back pain, nausea or vomiting, diarrhea, urinary symptoms, or rash. He denies pain or swelling in any other joint. He denies any recent known tick exposure. REVIEW OF SYSTEMS: A complete 10 point review of systems was reviewed with the patient with pertinent positives and negatives as per history of present illness. All else were negative. PAST MEDICAL HISTORY: MRSA infection. GERD. Pertinent surgical history including right wrist construction, right ankle reconstruction, right knee washout. SOCIAL HISTORY: Lives at home. Current everyday smoker. Denies alcohol and recreational drugs. ALLERGIES: Reviewed in chart. PHYSICAL EXAM: CONSTITUTIONAL: Pleasant and cooperative. No acute distress. Nontoxic- appearing. Well appearing and well nourished. HEENT: Normocephalic, atraumatic. Pupils equal, round and reactive to light, EOMI. TMs normal. Pharynx normal. NECK: Supple, full active range of motion without discomfort. RESPIRATORY: Clear to auscultation bilaterally with no wheezing, crackles, rhonchi or stridor. Equal expansion bilaterally. CARDIOVASCULAR: Regular rate and rhythm with no murmurs, rubs or gallops. Normal peripheral perfusion. No edema. GASTROINTESTINAL: Soft, nontender, nondistended. No palpable masses or HSM. Bowel sounds present in all quadrants. MUSCULOSKELETAL: The right knee is swollen and tender to palpation, warm to touch, and slightly erythematous. Two small surgical scars noted on the anterior, inferior knee, well healed and nontender. There is a large joint effusion noted. Unable to fully extend the knee, increased pain with flexion of the knee. Full range of motion of all other joints without discomfort or notable swelling. INTEGUMENTARY: No rash or other significant dermatologic conditions noted. NEUROLOGIC: Alert and oriented X 4 with normal affect. Normal strength and sensation in all four extremities. No focal neurologic deficits noted. Normal speech. Antalgic gait. ED COURSE AND MEDICAL DECISION MAKING: CC: Patient presenting with complaint of right knee pain and swelling DIFFERENTIAL DIAGNOSIS: Includes, but not limited to knee effusion, contusion, septic joint, gouty arthritis, MRSA infection, bacteremia/sepsis, ligamentous injury, fracture, among others. INTERPRETATION OF LABS: Leukocytosis with left shift, no anemia, no significant electrolyte abnormalities, normal renal function, normal liver enzymes. Significantly elevated inflammatory markers. Synovial joint fluid noting cell count with significantly elevated WBCs, normal RBCs, Gram stain pending. IMAGING: R KNEE 1 OR 2 VIEWS ROUTINE HISTORY: 42 years-old Male right knee pain, swelling, eval effusion acute right knee pain and swelling COMPARISON: None available TECHNIQUE: 2 views of the right knee FINDINGS: Mild to moderate lateral and moderate patellofemoral compartment osteoarthritis with mild medial compartment joint space narrowing and marginal spurring. Prominent marginal spurring about the patellofemoral joint. Corticated bone fragments are seen lateral to the knee measuring up to 10 mm suggesting fragmented osteophytes, accessory ossicles or healed remote fracture fragments. No definite intra-articular loose body identified. There is a moderate sized joint effusion with mild soft tissue swelling about the knee. IMPRESSION: 1. Moderate joint effusion without acute fracture or dislocation. 2. Tricompartmental osteoarthritis, most pronounced within the patellofemoral compartment where there is moderate disease. 3. Mild soft tissue swelling. PROCEDURE NOTE: Knee Arthrocentesis, Right Indication: Swollen and hot knee, evaluate for septic joint Verbal consent was obtained after the risks and benefits were explained, including but not limited to bleeding/clotting, scarring, infection, pain, and bone/joint/nerve damage. At this time, the risks of the procedure are less than the risks of NOT performing the procedure. A time out was taken and the correct patient and site identified. The patient was placed in the supine position with a towel roll under the right knee in a slightly flexed position. The knee was prepped with betadine and draped in the standard fashion. The superior lateral joint space was identified, skin surface was anesthetized locally with 1% lidocaine with epinephrine. An 18G needle was inserted through the skin, and constant steady traction was applied to the syringe as the needle was slowly advanced into the joint space, until return of fluid was achieved. 70 mL of turbid, yellow fluid drained from the joint space. Fluid sent to the lab for evaluation. The needle was removed and the skin was cleaned with sterile gauze and saline, and a bandaid was placed over the insertion site. The patient tolerated the procedure well and there were no complications. MEDICATION RECONCILIATION: I attest that I have personally reviewed the patient 's current medication list. INITIAL VITAL SIGNS REVIEW: I reviewed the patient's initial vital signs and interpret them as follows: T: Afebrile; BP: Hypertensive; HR: Tachycardic; RR : Within normal limits; Pulse Ox: Within normal limits on room. Blood pressure screening: The patient was found to have an elevated blood pressure and was referred to the inpatient team for further management. SUMMARY: Patient was evaluated at bedside, history and physical exam performed. Patient is alert and oriented, no acute distress, resting, and stretcher. Patient has obvious swelling and effusion to the right knee, slightly warm to touch compared to the left. Flexion and extension of the knee joint is severely limited due to pain. Orders were placed at bedside for labs, IV fluids for hydration, IV fentanyl for pain, XR right knee to evaluate knee effusion. Patient discussed with Dr. Leija, who agrees with my assessment and plan. Labs and imaging reviewed as above, noting significantly elevated inflammatory markers and leukocytosis. Arthrocentesis procedure performed as above, noting large amount of turbid yellow fluid suspicious for infection. Cell count 79,610 WBCs, gram stain pending. I spoke with Dr. Zelaya, Orthopedics, who agrees patient should be admitted, and will plan for the patient to go to the OR tomorrow for washout. He also agreed with IV vancomycin for coverage, given history of MRSA infections. Patient to be NPO after midnight in preparation for surgery tomorrow. [facility] to evaluate patient for [facility]. Patient reassessed multiple times throughout ED stay, he remained stable and afebrile, pain has been well controlled with IV fentanyl. Patient was updated on all results and plan for admission, he verbalized understanding and was agreeable to this plan. Patient was stable at time of admission. Current/Historical Medications Scheduled Hctz/Lisinopril (Lisinopril/Hctz 20/25 Mg), 1 TAB PO DAILY Omeprazole (Prilosec), 20 MG PO DAILY Scheduled PRN Ibuprofen Tab (Advil), 800 MG PO Q8 PRN for Pain Allergies Coded Allergies: Cephalexin (Verified Allergy, Unknown, UNKNOWN, 05/15/17) Vital Signs Date Time Temp Pulse Resp B/P (MAP) Pulse Ox O2 Delivery O2 Flow Rate FiO2 06/04/17 20:41 96 Room Air 06/04/17 19:38 98 20 160/113 96 Room Air 06/04/17 17:34 36.8 106 18 146/89 100 Room Air Laboratory Results 06/04/17 18:22 Red Blood Count 5.40, Mean Corpuscular Volume 82.4, Mean Corpuscular Hemoglobin 27.6, Mean Corpuscular Hemoglobin Concent 33.5, Mean Platelet Volume 9.5, Neutrophils (%) (Auto) 79.2, Lymphocytes (%) (Auto) 10.7, Monocytes (%) (Auto) 8.7, Eosinophils (%) (Auto) 0.8, Basophils (%) (Auto) 0.2, Neutrophils # (Auto) 10.25, Lymphocytes # (Auto) 1.38, Monocytes # (Auto) 1.13, Eosinophils # (Auto) 0.10, Basophils # (Auto) 0.02 06/04/17 18:22 Test 06/04/17 18:22 06/04/17 19:00 White Blood Count 12.93 K/uL (4.8-10.8) Red Blood Count 5.40 M/uL (4.7-6.1) Hemoglobin 14.9 g/dL (14.0-18.0) Hematocrit 44.5 % (42-52) Mean Corpuscular Volume 82.4 fL (80-100) Mean Corpuscular Hemoglobin 27.6 pg (25-34) Mean Corpuscular Hemoglobin Concent 33.5 g/dl (32-36) Platelet Count 392 K/uL (130-400) Mean Platelet Volume 9.5 fL (7.4-10.4) Neutrophils (%) (Auto) 79.2 % Lymphocytes (%) (Auto) 10.7 % Monocytes (%) (Auto) 8.7 % Eosinophils (%) (Auto) 0.8 % Basophils (%) (Auto) 0.2 % Neutrophils # (Auto) 10.25 K/uL (1.4-6.5) Lymphocytes # (Auto) 1.38 K/uL (1.2-3.4) Monocytes # (Auto) 1.13 K/uL (0.11-0.59) Eosinophils # (Auto) 0.10 K/uL (0-0.5) Basophils # (Auto) 0.02 K/uL (0-0.2) RDW Standard Deviation 43.5 fL (36.4-46.3) RDW Coefficient of Variation 14.4 % (11.5-14.5) Immature Granulocyte % (Auto) 0.4 % Immature Granulocyte # (Auto) 0.05 K/uL (0.00-0.02) Erythrocyte Sedimentation Rate 42 mm/hr (0-14) Prothrombin Time 9.4 SECONDS (9.0-12.0) Prothromb Time International Ratio 0.9 (0.9-1.1) Activated Partial Thromboplast Time 27.8 SECONDS (21.0-31.0) Partial Thromboplastin Ratio 1.1 Anion Gap 7.0 mmol/L (3-11) Est Creatinine Clear Calc Drug Dose 157.3 ml/min Estimated GFR () 125.2 Estimated GFR (Non- 108.0 BUN/Creatinine Ratio 11.6 (10-20) Uric Acid 4.4 mg/dl (2.6-7.2) Calcium Level 9.3 mg/dl (8.5-10.1) Total Bilirubin 0.7 mg/dl (0.2-1) Direct Bilirubin 0.2 mg/dl (0-0.2) Aspartate Amino Transf (AST/SGOT) 13 U/L (15-37) Alanine Aminotransferase (ALT/SGPT) 33 U/L (12-78) Alkaline Phosphatase 72 U/L (45-117) C-Reactive Protein 9.72 mg/dl (0-0.29) Total Protein 8.3 gm/dl (6.4-8.2) Albumin 3.5 gm/dl (3.4-5.0) Synovial Fluid Source RIGHT KNEE ASPIRATE Synovial Fluid Color LIGHT YELLOW Synovial Fluid Appearance TURBID Synovial Fluid WBC 44814 /uL (0-200) Synovial Fluid RBC < 3000 /uL Synovial Fluid Polynuclear WBCs % 94.0 % Synovial Fluid Mononuclear WBCs % 6.0 % Medications Administered Medications (Trade) Dose Ordered Sig/Kb Route Start Time Stop Time Status Last Admin Dose Admin Fentanyl Citrate (Fentanyl Inj) 100 mcg NOW STAT IV 06/04/17 17:54 06/04/17 17:59 DC 06/04/17 18:51 100 MCG Sodium Chloride 1,000 ml @ 999 mls/hr Q1H1M STAT IV 06/04/17 17:54 06/04/17 18:54 DC 06/04/17 18:52 999 MLS/HR Lidocaine/ Epinephrine (Xylocaine/Epine 1% Inj) 20 ml ONE ONCE INFIL 06/04/17 18:15 06/04/17 18:16 DC 06/04/17 18:52 20 ML Fentanyl Citrate (Fentanyl Inj) 100 mcg NOW STAT IV 06/04/17 19:13 06/04/17 19:14 DC 06/04/17 19:37 100 MCG Vancomycin HCl 2750 mg/Sodium Chloride 555 ml @ 200 mls/hr ONE STAT IV 06/04/17 19:49 06/04/17 22:35 06/04/17 20:39 200 MLS/HR Departure Information Impression Primary Impression: Septic joint of right knee joint Dispostion Admitted as an inpatient Condition FAIR Referrals Joseph Green D.OJose (PCP) Patient Instructions [facility] Problem Qualifiers Primary Impression: Septic joint of right knee joint Septic arthritis organism: due to unspecified organism Qualified Codes: M00.9 - Pyogenic arthritis, unspecified
[2017-06-04] MEDS ORDERED: LIDOCAINE/EPINEPHRINE 1% 20 ML VIAL INFIL ONE (18:15)
--- NOTE | 2017-06-04 18:18 | DIAGNOSTIC IMAGING REPORT ---
R KNEE 1 OR 2 VIEWS ROUTINE HISTORY: 42 years-old Male right knee pain, swelling, eval effusion acute right knee pain and swelling COMPARISON: None available TECHNIQUE: 2 views of the right knee FINDINGS: Mild to moderate lateral and moderate patellofemoral compartment osteoarthritis with mild medial compartment joint space narrowing and marginal spurring. Prominent marginal spurring about the patellofemoral joint. Corticated bone fragments are seen lateral to the knee measuring up to 10 mm suggesting fragmented osteophytes, accessory ossicles or healed remote fracture fragments. No definite intra-articular loose body identified. There is a moderate sized joint effusion with mild soft tissue swelling about the knee. IMPRESSION: 1. Moderate joint effusion without acute fracture or dislocation. 2. Tricompartmental osteoarthritis, most pronounced within the patellofemoral compartment where there is moderate disease. 3. Mild soft tissue swelling. The above report was generated using voice recognition software. It may contain grammatical, syntax or spelling errors. Electronically signed by: Solomon Russo M.D. 06/04/2017 6:17 PM Dictated Date/Time: 06/04/2017 6:15 PM
[2017-06-04] MEDS ORDERED: IBUP-103 PO (18:24)
[2017-06-04 18:55] LABS: BASO % 0.2 %; BASO ABS # 0.02 K/uL (0-0.2); EOS % 0.8 %; HEMATOCRIT 44.5 % (42-52); HEMOGLOBIN 14.9 g/dL (14.0-18.0); IG# 0.05 K/uL (0.00-0.02); LYMPH % 10.7 %; LYMPH ABS # 1.38 K/uL (1.2-3.4); MEAN CELL VOLUME 82.4 fL (80-100); MEAN CORPUSCULAR HEMOGLOBIN 27.6 pg (25-34); MEAN CORPUSCULAR HGB CONC 33.5 g/dl (32-36); MEAN PLATELET VOLUME 9.5 fL (7.4-10.4); MONO % 8.7 %; MONO ABS # 1.13 K/uL (0.11-0.59); NEUT % 79.2 %; NEUT ABS # 10.25 K/uL (1.4-6.5); PLATELET COUNT 392 K/uL (130-400); RED CELL DISTRIBUTION WIDTH CV 14.4 % (11.5-14.5); RED CELL DISTRIBUTION WIDTH SD 43.5 fL (36.4-46.3); WHITE BLOOD COUNT 12.93 K/uL (4.8-10.8)
[2017-06-04 19:14] LABS: ALBUMIN 3.5 gm/dl (3.4-5.0); CALCIUM 9.3 mg/dl (8.5-10.1); CREATININE 0.84 mg/dl (0.60-1.40); POTASSIUM 3.7 mmol/L (3.5-5.1); URIC ACID 4.4 mg/dl (2.6-7.2)
[2017-06-04 19:17] LABS: TOTAL PROTEIN 8.3 gm/dl (6.4-8.2)
[2017-06-04] MEDS ORDERED: VANCOMYCIN IV 2,750 MG in SODIUM CHLORIDE 0.9% 500ML 500 ML IV STA (19:49)
[2017-06-04 19:57] LABS: INR 0.9 (0.9-1.1); PTT PATIENT 27.8 SECONDS (21.0-31.0)
[2017-06-04] MEDS ORDERED: VANCOMYCIN CONSULT ACTIVE PRN ×2 (20:00→21:45)
[2017-06-04 20:41] VITALS: O2SAT 96; Ht 180.3 cm; Wt 129.8 kg
--- NOTE | 2017-06-04 21:21 | History and Physical ---
History & Physical Date & Time of Service: Jun 04, 2017 at 21:17 Chief Complaint: Rt Knee Pain,Swelling,Warm To Touch- Referred Primary Care Physician: Joseph Green D.O. History of Present Illness Source: patient, hospital records 42 yo male with pMHx of HTN and GERD who presents with recurrent infection of right knee joint despite washout on Apr 04, 2017 with 4 weeks of treatment with daptomycin + 2 weeks with ertapenem via PICC line and then PO Bactrim. The course of Bactrim was completed two days ago, but approximately 3 days ago, he noted pain and restricted ROM in his right knee, sensations that were similar to the previous episode of septic joint. He states the pain has been persistent and worsening, and today he is unable to fully straighten or bend the knee due to pain and swelling. He has been using NSAIDs for pain management with no improvement. He denies pain or swelling in any other joint. He denies any fevers , but states he has been having some chills and sweats. He denies headache, chest pain, dyspnea, abdominal pain, nausea or vomiting, diarrhea, urinary symptoms, or rash. In the ER, labs reveal leukocytosis and elevated inflammatory markers. Patient' s right knee was drained and the fluid sent for staining and culture. ROS unremarkable aside from indicated above. Past Medical/Surgical History Medical Problems: (1) Acute kidney injury (2) Dehydration (3) Fatigue (4) Heat exhaustion (5) Hypokalemia Family History Diabetes mellitus Both sides Hypertension MOTHER BROTHER Social History Smoking Status: Current Every Day Smoker Smokeless Tobacco Use: No Alcohol Use: none Drug Use: none Marital Status: Housing status: lives alone Occupational Status: employed Immunizations History of Influenza Vaccine: Unknown History of Tetanus Vaccine?: Unknown History of Pneumococcal: Unknown History of Hepatitis B Vaccine: Unknown Allergies Coded Allergies: Cephalexin (Verified Allergy, Unknown, UNKNOWN, 05/15/17) Home Medications Scheduled Hctz/Lisinopril (Lisinopril/Hctz 20/25 Mg), 1 TAB PO DAILY Omeprazole (Prilosec), 20 MG PO DAILY Scheduled PRN Ibuprofen Tab (Advil), 800 MG PO Q8 PRN for Pain Physical Exam Vital Signs Date Time Temp Pulse Resp B/P (MAP) Pulse Ox O2 Delivery O2 Flow Rate FiO2 06/04/17 20:41 96 Room Air 3/21/18 19:38 98 20 160/113 96 Room Air 06/04/17 17:34 36.8 106 18 146/89 100 Room Air General Appearance: WD/WN, no apparent distress Head: normocephalic, atraumatic Eyes: normal inspection, sclerae normal ENT: hearing grossly normal Neck: supple, no adenopathy Respiratory/Chest: normal breath sounds, no respiratory distress, no accessory muscle use Cardiovascular: regular rate, rhythm, no murmur, normal peripheral pulses Abdomen/GI: normal bowel sounds, non tender, soft Extremities/Musculoskelatal: no calf tenderness, no pedal edema, + pertinent finding (Swelling and effusion of R knee, warm compared to left. No significant erythema. Flexion and extension of R knee joint severely limited due to pain) Neurologic/Psych: alert, oriented x 3, + depressed affect Skin: normal color, no rash Diagnostics Laboratory Results Results Past 24 Hours Test 06/04/17 18:22 06/04/17 19:00 Range/Units White Blood Count 12.93 4.8-10.8 K/uL Red Blood Count 5.40 4.7-6.1 M/uL Hemoglobin 14.9 14.0-18.0 g/dL Hematocrit 44.5 42-52 % Mean Corpuscular Volume 82.4 80-100 fL Mean Corpuscular Hemoglobin 27.6 25-34 pg Mean Corpuscular Hemoglobin Concent 33.5 32-36 g/dl Platelet Count 392 130-400 K/uL Mean Platelet Volume 9.5 7.4-10.4 fL Neutrophils (%) (Auto) 79.2 % Lymphocytes (%) (Auto) 10.7 % Monocytes (%) (Auto) 8.7 % Eosinophils (%) (Auto) 0.8 % Basophils (%) (Auto) 0.2 % Neutrophils # (Auto) 10.25 1.4-6.5 K/uL Lymphocytes # (Auto) 1.38 1.2-3.4 K/uL Monocytes # (Auto) 1.13 0.11-0.59 K/uL Eosinophils # (Auto) 0.10 0-0.5 K/uL Basophils # (Auto) 0.02 0-0.2 K/uL RDW Standard Deviation 43.5 36.4-46.3 fL RDW Coefficient of Variation 14.4 11.5-14.5 % Immature Granulocyte % (Auto) 0.4 % Immature Granulocyte # (Auto) 0.05 0.00-0.02 K/uL Erythrocyte Sedimentation Rate 42 0-14 mm/hr Prothrombin Time 9.4 9.0-12.0 SECONDS Prothromb Time International Ratio 0.9 0.9-1.1 Activated Partial Thromboplast Time 27.8 21.0-31.0 SECONDS Partial Thromboplastin Ratio 1.1 Sodium Level 137 136-145 mmol/L Potassium Level 3.7 3.5-5.1 mmol/L Chloride Level 102 98-107 mmol/L Carbon Dioxide Level 28 21-32 mmol/L Anion Gap 7.0 3-11 mmol/L Blood Urea Nitrogen 10 7-18 mg/dl Creatinine 0.84 0.60-1.40 mg/dl Est Creatinine Clear Calc Drug Dose 157.3 ml/min Estimated GFR () 125.2 Estimated GFR (Non- 108.0 BUN/Creatinine Ratio 11.6 10-20 Random Glucose 131 70-99 mg/dl Uric Acid 4.4 2.6-7.2 mg/dl Calcium Level 9.3 8.5-10.1 mg/dl Total Bilirubin 0.7 0.2-1 mg/dl Direct Bilirubin 0.2 0-0.2 mg/dl Aspartate Amino Transf (AST/SGOT) 13 15-37 U/L Alanine Aminotransferase (ALT/SGPT) 33 12-78 U/L Alkaline Phosphatase 72 45-117 U/L C-Reactive Protein 9.72 0-0.29 mg/dl Total Protein 8.3 6.4-8.2 gm/dl Albumin 3.5 3.4-5.0 gm/dl Synovial Fluid Source RIGHT KNEE ASPIRATE Synovial Fluid Color LIGHT YELLOW Synovial Fluid Appearance TURBID Synovial Fluid WBC 68348 0-200 /uL Synovial Fluid RBC < 3000 /uL Synovial Fluid Polynuclear WBCs % 94.0 % Synovial Fluid Mononuclear WBCs % 6.0 % Microbiology Results 06/04/17 Blood Culture, Received Pending 06/04/17 Blood Culture, Received Pending 06/04/17 Gram Stain - Preliminary, Resulted 06/04/17 Bacterial Culture, Resulted Pending Diagnostic Radiology R KNEE 1 OR 2 VIEWS ROUTINE HISTORY: 42 years-old Male right knee pain, swelling, eval effusion acute right knee pain and swelling COMPARISON: None available TECHNIQUE: 2 views of the right knee FINDINGS: Mild to moderate lateral and moderate patellofemoral compartment osteoarthritis with mild medial compartment joint space narrowing and marginal spurring. Prominent marginal spurring about the patellofemoral joint. Corticated bone fragments are seen lateral to the knee measuring up to 10 mm suggesting fragmented osteophytes, accessory ossicles or healed remote fracture fragments. No definite intra-articular loose body identified. There is a moderate sized joint effusion with mild soft tissue swelling about the knee. IMPRESSION: 1. Moderate joint effusion without acute fracture or dislocation. 2. Tricompartmental osteoarthritis, most pronounced within the patellofemoral compartment where there is moderate disease. 3. Mild soft tissue swelling. Impression Assessment and Plan 42 yo male with pMHx of HTN and GERD who presents with recurrent infection of right knee joint despite washout on Apr 04, 2017 with 4 weeks of treatment with daptomycin + 2 weeks with ertapenem via PICC line and then PO Bactrim. S/p right knee arthrocentesis in the ER Septic right knee joint - XR negative for osteomyelitis - S/p arthrocentesis with fluid drained suspicious for infection: .79,610 WBCs. Gram staining and cultures pending. - Consulted ortho, patient for OR tomorrow for right knee wash out. NPO after midnight with IVF NSS @ 100 cc/hr ordered - Commenced IV vanco - given history of MRSA infections stemming from an ankle surgery a year ago. - ID consulted, patient was following Dr. Alexander previously - Immunoglobulins ordered given recurrent MRSA infections - Pain management with Tylenol and morphine HTN - Continue lisinopril/HCTz GERD - Continue pantoprazole ?Depression - Patient appears depressed. Consider initiation of SSRI VTE ppx - SCDs given procedure tomorrow Full Code Attending addendum: I have physically seen this patient, have supervised the medical residents activities, and agree with the H&P unless as otherwise noted. Assessment and Plan: Septic right knee-- Follow synovial fluid Gram stain and culture and sensitivity. History of MRSA Continue IV Vanco begun in the ED. Consult Dr. Alexander from infectious disease has followed with the patient. Evaluation for immunodeficiency due to recurrence of infection. Advanced Directives Existing Advance Directive: No Existing Living Will: No Existing Power of Academic Registrar: No Resuscitation Status Full code VTE Prophylaxis Will order VTE Prophylaxis: Yes Resident Tracking Resident Involvement: Resident Care Provided Care Provided: Adult Hospital Medicine
[2017-06-04] MEDS ORDERED: POLYETHYLENE (MIRALAX) 17 GM PACK PO PRN (21:45)
[2017-06-04] MEDS ORDERED: ACETAMINOPHEN 325 MG TAB PO PRN (21:45)
[2017-06-04] MEDS ORDERED: MAGNESIUM HYDROXIDE SUSP 30 ML UDC PO PRN (21:45)
[2017-06-04] MEDS ORDERED: IBUPROFEN 800 MG TAB PO PRN (21:45)
[2017-06-04] MEDS ORDERED: ONDANSETRON INJ 2 MG/ML 2 ML VIAL IV PRN (21:45)
[2017-06-04] MEDS ORDERED: ALUMINUM/MAGNESIUM/SIMETH (MAALOX MAX) 30 ML UDC PO PRN (21:45)
--- NOTE | 2017-06-04 22:11 | Pharmacy Progress Note ---
Pharmacy Antibiotic Consult Date of Service: Jun 04, 2017. Pharmacy Dosing Scope Pharmacy is consulted to initiate vancomycin IV dosing therapy, order appropriate labs and adjust drug dose/frequency. Subjective The patient is a 42 year old male admitted on . Objective Height (Feet): 5 Height (Inches): 11.00 Weight (Kilograms): 129.800 Lab Results (24hrs): Test 06/04/17 18:22 06/04/17 19:00 White Blood Count 12.93 K/uL (4.8-10.8) Red Blood Count 5.40 M/uL (4.7-6.1) Hemoglobin 14.9 g/dL (14.0-18.0) Hematocrit 44.5 % (42-52) Mean Corpuscular Volume 82.4 fL (80-100) Mean Corpuscular Hemoglobin 27.6 pg (25-34) Mean Corpuscular Hemoglobin Concent 33.5 g/dl (32-36) Platelet Count 392 K/uL (130-400) Mean Platelet Volume 9.5 fL (7.4-10.4) Neutrophils (%) (Auto) 79.2 % Lymphocytes (%) (Auto) 10.7 % Monocytes (%) (Auto) 8.7 % Eosinophils (%) (Auto) 0.8 % Basophils (%) (Auto) 0.2 % Neutrophils # (Auto) 10.25 K/uL (1.4-6.5) Lymphocytes # (Auto) 1.38 K/uL (1.2-3.4) Monocytes # (Auto) 1.13 K/uL (0.11-0.59) Eosinophils # (Auto) 0.10 K/uL (0-0.5) Basophils # (Auto) 0.02 K/uL (0-0.2) RDW Standard Deviation 43.5 fL (36.4-46.3) RDW Coefficient of Variation 14.4 % (11.5-14.5) Immature Granulocyte % (Auto) 0.4 % Immature Granulocyte # (Auto) 0.05 K/uL (0.00-0.02) Erythrocyte Sedimentation Rate 42 mm/hr (0-14) Prothrombin Time 9.4 SECONDS (9.0-12.0) Prothromb Time International Ratio 0.9 (0.9-1.1) Activated Partial Thromboplast Time 27.8 SECONDS (21.0-31.0) Partial Thromboplastin Ratio 1.1 Sodium Level 137 mmol/L (136-145) Potassium Level 3.7 mmol/L (3.5-5.1) Chloride Level 102 mmol/L (98-107) Carbon Dioxide Level 28 mmol/L (21-32) Anion Gap 7.0 mmol/L (3-11) Blood Urea Nitrogen 10 mg/dl (7-18) Creatinine 0.84 mg/dl (0.60-1.40) Est Creatinine Clear Calc Drug Dose 157.3 ml/min Estimated GFR () 125.2 Estimated GFR (Non- 108.0 BUN/Creatinine Ratio 11.6 (10-20) Random Glucose 131 mg/dl (70-99) Uric Acid 4.4 mg/dl (2.6-7.2) Calcium Level 9.3 mg/dl (8.5-10.1) Total Bilirubin 0.7 mg/dl (0.2-1) Direct Bilirubin 0.2 mg/dl (0-0.2) Aspartate Amino Transf (AST/SGOT) 13 U/L (15-37) Alanine Aminotransferase (ALT/SGPT) 33 U/L (12-78) Alkaline Phosphatase 72 U/L (45-117) C-Reactive Protein 9.72 mg/dl (0-0.29) Total Protein 8.3 gm/dl (6.4-8.2) Albumin 3.5 gm/dl (3.4-5.0) Synovial Fluid Source RIGHT KNEE ASPIRATE Synovial Fluid Color LIGHT YELLOW Synovial Fluid Appearance TURBID Synovial Fluid WBC 40004 /uL (0-200) Synovial Fluid RBC < 3000 /uL Synovial Fluid Polynuclear WBCs % 94.0 % Synovial Fluid Mononuclear WBCs % 6.0 % Micro Results: Date/Time Source Procedure Growth Status 06/04/17 18:31 Blood Blood Culture Pending Received 06/04/17 18:22 Blood Blood Culture Pending Received 06/04/17 19:00 Joint Fluid/Space (Synovial) Knee Right Gram Stain - Preliminary Resulted 06/04/17 19:00 Joint Fluid/Space (Synovial) Knee Right Bacterial Culture Pending Resulted Recent Pertinent Medications On IV antibiotics which were stopped 1 week ago. Assessment & Plan Assessment: 42 yo male presenting with right knee pain and swelling x 2 days. Patient w/ hx of MRSA, MSSA infection in right knee 2 months ago, stopped antibiotics 1 week ago. Starting vancomycin for coverage WBC 12.9, cultures pending Plan: Loading dose: 2750 mg (21 mg/kg) IV X 1 dose then: 1500 mg IV every 8 hours. Patient at risk for accumulation given BMI > 35, patient on vancomycin during last admission with similar CrCl and ~6 kg smaller, was started on 1500 mg q8H which provided trough of 20.3 after fourth dose. Will start with this dosing and adjust as needed. Goal trough level estimate: between 15-20 mcg/mL. Trough ordered for 06/06@ 8216 Pharmacy will continue to follow and will adjust dose/frequency as necessary. Thank you
[2017-06-04 22:58] VITALS: BP 145/84; PULSE 105; TEMP 37.2; O2SAT 99
[2017-06-04] MEDS ORDERED: MoRPHine SULFATE 4 MG/ML 1 ML CARP\\VIAL IV STA (23:52)
[2017-06-05] VITALS (7 sets, daily range): BP systolic 112–151; BP diastolic 67–85; PULSE 57–102; TEMP 36.2–36.9; O2SAT 92–96
[2017-06-05] MEDS ORDERED: NURSING VERBAL MED ORDER ONE (03:15)
[2017-06-05] MEDS: SODIUM CHLORIDE 0.9% 1000ML 1,000 ML IV SCH ×4 (03:18→22:14)
[2017-06-05] MEDS: VANCOMYCIN IV 1,500 MG in SODIUM CHLORIDE 0.9% 500ML 500 ML IV SCH ×3 (04:37→22:09)
[2017-06-05] MEDS ORDERED: MoRPHine SULFATE 4 MG/ML 1 ML CARP\\VIAL IV PRN (05:00)
[2017-06-05 06:43] LABS: HEMATOCRIT 39.7 % (42-52); HEMOGLOBIN 12.9 g/dL (14.0-18.0); MEAN CELL VOLUME 83.1 fL (80-100); MEAN CORPUSCULAR HGB CONC 32.5 g/dl (32-36); MEAN PLATELET VOLUME 9.6 fL (7.4-10.4); PLATELET COUNT 353 K/uL (130-400); RED CELL DISTRIBUTION WIDTH CV 14.5 % (11.5-14.5); RED CELL DISTRIBUTION WIDTH SD 44.4 fL (36.4-46.3); WHITE BLOOD COUNT 10.14 K/uL (4.8-10.8)
[2017-06-05 07:22] LABS: CALCIUM 8.4 mg/dl (8.5-10.1); CREATININE 0.69 mg/dl (0.60-1.40); POTASSIUM 3.5 mmol/L (3.5-5.1)
[2017-06-05] MEDS: LISINOPRIL/HCTZ 20/25MG TAB PO SCH (07:59)
[2017-06-05] MEDS: PANTOprazole SOD 40 MG TAB PO SCH (07:59)
[2017-06-05] MEDS: HYDROmorphone INJ 0.5 MG/0.5 ML SYR IV PRN (09:18)
--- NOTE | 2017-06-05 10:49 | Medical Consult ---
Consultation Date of Consultation: Jun 05, 2017. Attending Physician: Avery Reynolds M.D. Reason for Consultation: Recurrent right knee infection History of Present Illness 42-year-old male well known to me with hospitalization in April for septic arthritis involving the right knee with methicillin sensitive Staph aureus. Patient underwent arthroscopy and washout, was discharged home on IV daptomycin to complete 6 weeks of antibiotics. However he developed increasing CPK levels , and was changed to ertapenem. Over the last several days, patient has noted recurrence of his right knee pain and swelling consistent with previous infection. Had aspiration done with finding of purulent fluid. Now waiting repeat arthroscopy. Currently on vancomycin and tolerating without apparent difficulty. Aspirate Gram stain negative, cultures are pending. Patient denies any significant fever or chills. Past Medical/Surgical History Medical Problems: (1) Fatigue Status: Acute (2) Heat exhaustion Status: Acute Medical Problems: (1) Acute kidney injury (2) Dehydration (3) Septic joint of right knee joint Family History Diabetes mellitus Both sides Hypertension MOTHER BROTHER Social History Smoking Status: Current Every Day Smoker Drug Use: none Marital Status: Housing Status: lives with family Occupation Status: employed Allergies Coded Allergies: Cephalexin (Verified Allergy, Unknown, UNKNOWN, 05/15/17) Current Inpatient Medications Current Inpatient Medications Medications (Trade) Dose Ordered Sig/Kb Route Start Time Stop Time Status Last Admin Dose Admin Acetaminophen (Tylenol Tab) 650 mg Q4H PRN PO 06/04/17 21:45 07/04/17 21:44 Al Hydrox/Mg Hydrox/Simethicone (Maalox Max Susp) 15 ml Q4H PRN PO 06/04/17 21:45 07/04/17 21:44 Magnesium Hydroxide (Milk Of Magnesia Susp) 30 ml Q6H PRN PO 06/04/17 21:45 07/04/17 21:44 Polyethylene (Miralax Powder Packet) 17 gm DAILY PRN PO 06/04/17 21:45 07/04/17 21:44 Ondansetron HCl (Zofran Inj) 4 mg Q6H PRN IV 06/04/17 21:45 07/04/17 21:44 HCTZ/Lisinopril (Prinzide 20-25MG Tab) 1 tab DAILY PO 06/05/17 09:00 4/21/18 08:59 06/05/17 07:59 1 TAB Ibuprofen (Motrin Tab) 800 mg Q8 PRN PO 06/04/17 21:45 07/04/17 21:44 Pantoprazole Sodium (Protonix Tab) 40 mg DAILY PO 06/05/17 09:00 07/05/17 08:59 06/05/17 07:59 40 MG Vancomycin HCl 1500 mg/Sodium Chloride 530 ml @ 200 mls/hr Q8H IV 06/05/17 05:00 07/17/17 04:59 06/05/17 04:37 200 MLS/HR Miscellaneous Information (Consult) 1 ea UD PRN N/A 06/04/17 21:45 07/04/17 21:44 Sodium Chloride 1,000 ml @ 100 mls/hr Q10H IV 06/05/17 00:00 07/05/17 00:00 06/05/17 03:18 100 MLS/HR Hydromorphone HCl (Dilaudid Inj) 0.5 mg Q4HWA PRN IV 06/05/17 08:45 06/19/17 08:44 06/05/17 09:18 0.5 MG Review of Systems All systems were reviewed and are negative except as per HPI Physical Exam Date Time Temp Pulse Resp B/P (MAP) Pulse Ox O2 Delivery O2 Flow Rate FiO2 06/05/17 07:42 36.9 102 16 137/85 (102) 95 Room Air 06/05/17 07:26 Room Air 06/04/17 23:00 Room Air 06/04/17 22:58 37.2 105 17 145/84 (104) 99 Room Air 06/04/17 22:09 98 18 147/88 96 Room Air 06/04/17 20:41 96 Room Air 06/04/17 19:38 98 20 160/113 96 Room Air 06/04/17 17:34 36.8 106 18 146/89 100 Room Air General Appearance: WD/WN, no apparent distress Head: normocephalic, atraumatic Eyes: normal inspection, EOMI, sclerae normal ENT: normal ENT inspection, pharynx normal Neck: supple, no adenopathy, thyroid normal, trachea midline Respiratory/Chest: chest non-tender, lungs clear, normal breath sounds, no respiratory distress Cardiovascular: regular rate, rhythm, no gallop, no murmur Abdomen/GI: normal bowel sounds, non tender, soft, no organomegaly Back: normal inspection, no CVA tenderness Extremities/Musculoskelatal: no calf tenderness, normal capillary refill, + pertinent finding (Right knee swelling) Neurologic/Psych: alert, normal mood/affect, oriented x 3 Skin: normal color, warm/dry, no rash Lymphatic: no adenopathy Laboratory Results Date/Time Source Procedure Growth Status 06/04/17 18:31 Blood Blood Culture Pending Received 06/04/17 18:22 Blood Blood Culture Pending Received 06/04/17 19:00 Joint Fluid/Space (Synovial) Knee Right Gram Stain - Final Resulted 06/04/17 19:00 Joint Fluid/Space (Synovial) Knee Right Bacterial Culture Pending Resulted Last 24 Hours Test 06/04/17 18:22 06/04/17 19:00 06/05/17 06:29 White Blood Count 12.93 K/uL 10.14 K/uL Red Blood Count 5.40 M/uL 4.78 M/uL Hemoglobin 14.9 g/dL 12.9 g/dL Hematocrit 44.5 % 39.7 % Mean Corpuscular Volume 82.4 fL 83.1 fL Mean Corpuscular Hemoglobin 27.6 pg 27.0 pg Mean Corpuscular Hemoglobin Concent 33.5 g/dl 32.5 g/dl Platelet Count 392 K/uL 353 K/uL Mean Platelet Volume 9.5 fL 9.6 fL Neutrophils (%) (Auto) 79.2 % Lymphocytes (%) (Auto) 10.7 % Monocytes (%) (Auto) 8.7 % Eosinophils (%) (Auto) 0.8 % Basophils (%) (Auto) 0.2 % Neutrophils # (Auto) 10.25 K/uL Lymphocytes # (Auto) 1.38 K/uL Monocytes # (Auto) 1.13 K/uL Eosinophils # (Auto) 0.10 K/uL Basophils # (Auto) 0.02 K/uL RDW Standard Deviation 43.5 fL 44.4 fL RDW Coefficient of Variation 14.4 % 14.5 % Immature Granulocyte % (Auto) 0.4 % Immature Granulocyte # (Auto) 0.05 K/uL Erythrocyte Sedimentation Rate 42 mm/hr Prothrombin Time 9.4 SECONDS Prothromb Time International Ratio 0.9 Activated Partial Thromboplast Time 27.8 SECONDS Partial Thromboplastin Ratio 1.1 Sodium Level 137 mmol/L 137 mmol/L Potassium Level 3.7 mmol/L 3.5 mmol/L Chloride Level 102 mmol/L 104 mmol/L Carbon Dioxide Level 28 mmol/L 27 mmol/L Anion Gap 7.0 mmol/L 6.0 mmol/L Blood Urea Nitrogen 10 mg/dl 9 mg/dl Creatinine 0.84 mg/dl 0.69 mg/dl Est Creatinine Clear Calc Drug Dose 157.3 ml/min 191.5 ml/min Estimated GFR () 125.2 135.7 Estimated GFR (Non- 108.0 117.1 BUN/Creatinine Ratio 11.6 12.6 Random Glucose 131 mg/dl 112 mg/dl Uric Acid 4.4 mg/dl Calcium Level 9.3 mg/dl 8.4 mg/dl Total Bilirubin 0.7 mg/dl Direct Bilirubin 0.2 mg/dl Aspartate Amino Transf (AST/SGOT) 13 U/L Alanine Aminotransferase (ALT/SGPT) 33 U/L Alkaline Phosphatase 72 U/L C-Reactive Protein 9.72 mg/dl Total Protein 8.3 gm/dl Albumin 3.5 gm/dl Immunoglobulin G 1030.0 mg/dL Immunoglobulin A 232.0 mg/dL Immunoglobulin M 267.0 mg/dL Synovial Fluid Source RIGHT KNEE ASPIRATE Synovial Fluid Color LIGHT YELLOW Synovial Fluid Appearance TURBID Synovial Fluid WBC 50139 /uL Synovial Fluid RBC < 3000 /uL Synovial Fluid Polynuclear WBCs % 94.0 % Synovial Fluid Mononuclear WBCs % 6.0 % Synovial Fluid Crystals R KNEE 1 OR 2 VIEWS ROUTINE HISTORY: 42 years-old Male right knee pain, swelling, eval effusion acute right knee pain and swelling COMPARISON: None available TECHNIQUE: 2 views of the right knee FINDINGS: Mild to moderate lateral and moderate patellofemoral compartment osteoarthritis with mild medial compartment joint space narrowing and marginal spurring. Prominent marginal spurring about the patellofemoral joint. Corticated bone fragments are seen lateral to the knee measuring up to 10 mm suggesting fragmented osteophytes, accessory ossicles or healed remote fracture fragments. No definite intra-articular loose body identified. There is a moderate sized joint effusion with mild soft tissue swelling about the knee. IMPRESSION: 1. Moderate joint effusion without acute fracture or dislocation. 2. Tricompartmental osteoarthritis, most pronounced within the patellofemoral compartment where there is moderate disease. 3. Mild soft tissue swelling. The above report was generated using voice recognition software. It may contain grammatical, syntax or spelling errors. Assessment & Plan Current knee swelling inpatient on treatment for septic arthritis with methicillin sensitive Staph aureus involving the right knee. This highly unusual to have sudden recurrence after doing well for so long. Await further culture results and findings on OR today. Will continue vancomycin pending above. Will follow.
[2017-06-05] MEDS ORDERED: ATROPINE SULFATE 0.1 MG/ML 5ML SYR IV PRN (12:15)
[2017-06-05] MEDS ORDERED: ONDANSETRON INJ 2 MG/ML 2 ML VIAL IV PRN ×2 (12:15→15:15)
[2017-06-05] MEDS ORDERED: LABETALOL HCL IV 5 MG/ML 20ML IV PRN (12:15)
[2017-06-05] MEDS ORDERED: KETOROLAC TROMETHAMINE 30 MG/ML VIAL IV. PRN (12:15)
[2017-06-05] MEDS ORDERED: DEXAMETHASONE SOD INJ 4 MG/ML VIAL ONE (13:24)
[2017-06-05] MEDS ORDERED: FENTANYL CITRATE INJ 50 MCG/1 ML 2 ML VIAL ONE ×2 (13:24→15:33)
[2017-06-05] MEDS ORDERED: ONDANSETRON INJ 2 MG/ML 2 ML VIAL ONE (13:24)
[2017-06-05] MEDS ORDERED: MIDAZOLAM HCL 1 MG/ML 2ML VIAL ONE (13:24)
[2017-06-05] MEDS ORDERED: PROPOFOL IV EMULSION 10 MG/ML 20 ML VIAL IV ONE (13:24)
[2017-06-05] MEDS ORDERED: LIDOCAINE HCL 2% 2 ML VIAL (20MG/ML) ONE (13:24)
[2017-06-05] MEDS ORDERED: SODIUM CHLORIDE 0.9% INJ 10 ML VIAL ONE ×2 (13:28→15:04)
[2017-06-05] MEDS ORDERED: HYDROmorphone INJ 2 MG/ML SYR/VIAL ONE (13:28)
[2017-06-05] MEDS ORDERED: BUPIVACAINE/EPINEPHRINE 0.5% MPF 1:200,000 30 ML VIAL ONE (14:15)
[2017-06-05] MEDS ORDERED: DexMEDEtomidine HCL IV 100 MCG/ML VIAL IV ONE (14:22)
--- NOTE | 2017-06-05 14:41 | CONSULTATION REPORT ---
DATE OF CONSULTATION: 06/05/2017 CHIEF COMPLAINT: Right knee pain. HISTORY OF PRESENT ILLNESS: The patient is status post an arthroscopic irrigation and debridement for an infection, spontaneous in his right knee, roughly 6 weeks ago. He was originally on daptomycin and was subsequently switched to ertapenem. He has stopped all antibiotics 48 hours ago, immediately noticed a recurrence of the right knee effusion with pain and symptoms similar to before. He was brought to the Emergency Department where yesterday his knee was tapped for purulent fluid. Physical examination today reveals a tensely swollen and warm right knee. No drainage. White blood cell count is 12.3. Sedimentation rate 42. C-reactive protein 9.72. ASSESSMENT: Likely recurrent sepsis, right knee. PLAN: We will bring him to the operating room today for a second irrigation and debridement and synovectomy, a drain placement and cultures once again; however, the aspiration from the Emergency Room is likely to be the most fruitful. An aggressive synovectomy will be performed as well.
[2017-06-05] MEDS ORDERED: KETOROLAC TROMETHAMINE 30 MG/ML VIAL ONE (15:04)
[2017-06-05] MEDS ORDERED: GLYCOPYRROLATE INJ 0.2 MG/ML VIAL ONE (15:04)
[2017-06-05] MEDS ORDERED: NEOSTIGMINE METHYLSULFATE 5 MG/5 ML SYR ONE (15:04)
[2017-06-05] MEDS ORDERED: MAGNESIUM HYDROXIDE SUSP 30 ML UDC PO PRN (15:15)
[2017-06-05] MEDS ORDERED: ALUMINUM/MAGNESIUM/SIMETH (MAALOX MAX) 30 ML UDC PO PRN (15:15)
--- NOTE | 2017-06-05 15:31 | [facility] Post Operative Brief Note ---
Immediate Operative Summary Operative Date Jun 05, 2017. Pre-Operative Diagnosis Recurrent sepsis right knee Post-Operative Diagnosis Recurrent sepsis, right knee Procedure(s) Performed Right Knee Arthroscopic Irrigation and Debridement Surgeon Dr. Martinez Content Editor Surgeon(s) none Estimated Blood Loss 50 cc Findings Consistent with Post-Op Diagnosis Specimens Culture #1 Right knee synovial fluid-gram stain, culture and sensitivity, aerobic/anaerobic Anesthesia Type General Disposition Accompanied Pt To Recover: no Disposition: Recovery Room / PACU
[2017-06-05] MEDS: HYDROmorphone INJ 2 MG/ML SYR/VIAL IV PRN ×8 (15:55→16:50)
--- NOTE | 2017-06-05 16:20 | Anesthesiology Progress Note ---
Anesthesia Post Op Note Date & Time Jun 05, 2017 at 16:20 Vital Signs Pain Intensity: 6 Vital Signs Past 12 Hours Date Time Temp Pulse Resp B/P (MAP) Pulse Ox O2 Delivery O2 Flow Rate FiO2 06/05/17 15:37 36.0 68 16 132/79 97 Oxymask 10 06/05/17 07:42 36.9 102 16 137/85 (102) 95 Room Air 06/05/17 07:26 Room Air Notes Mental Status: alert / awake / arousable, participated in evaluation Pt Amnestic to Procedure: Yes Nausea / Vomiting: adequately controlled Pain: adequately controlled Airway Patency, RR, SpO2: stable & adequate BP & HR: stable & adequate Hydration State: stable & adequate Anesthetic Complications: no major complications apparent
--- NOTE | 2017-06-05 18:25 | Progress Note ---
Subjective Date of Service: Jun 05, 2017. Subjective this pt was taken to the OR 06/05 for wash out Problem List Medical Problems: (1) Fatigue Status: Acute (2) Heat exhaustion Status: Acute Review of Systems Constitutional: + weakness, + fatigue, No fever, No chills Respiratory: No cough, No wheezing Abdomen: No pain, No nausea, No vomiting, No diarrhea Musculoskeletal: + joint pain, + muscle pain Objective Vital Signs Date Time Temp Pulse Resp B/P (MAP) Pulse Ox O2 Delivery O2 Flow Rate FiO2 06/05/17 17:54 83 18 151/82 (105) 95 Nasal Cannula 1.0 06/05/17 17:25 36.4 57 16 126/67 (86) 96 Nasal Cannula 2.0 06/05/17 17:25 96 Nasal Cannula 2.0 06/05/17 17:25 96 Nasal Cannula 2.0 06/05/17 17:00 58 12 103/66 95 Nasal Cannula 2 06/05/17 16:45 60 16 123/66 95 Nasal Cannula 2 06/05/17 16:35 36.3 75 20 118/62 97 Nasal Cannula 2 06/05/17 16:25 93 19 105/50 96 Nasal Cannula 2 06/05/17 16:15 58 17 115/69 94 Nasal Cannula 2 06/05/17 16:05 61 12 130/69 94 Nasal Cannula 2 06/05/17 15:55 69 16 114/67 97 Oxymask 10 06/05/17 15:45 61 12 127/65 97 Oxymask 10 06/05/17 15:37 36.0 68 16 132/79 97 Oxymask 10 06/05/17 07:42 36.9 102 16 137/85 (102) 95 Room Air 06/05/17 07:26 Room Air 06/04/17 23:00 Room Air 06/04/17 22:58 37.2 105 17 145/84 (104) 99 Room Air 06/04/17 22:09 98 18 147/88 96 Room Air 06/04/17 20:41 96 Room Air 06/04/17 19:38 98 20 160/113 96 Room Air Physical Exam General Appearance: WD/WN, + mild distress Eyes: normal inspection, sclerae normal Cardiovascular: regular rate, rhythm, no murmur Abdomen: normal bowel sounds, non tender, soft Neurologic/Psychiatric: alert, oriented x 3 Laboratory Results Last 24 Hours Test 06/04/17 19:00 06/05/17 06:29 Synovial Fluid Source RIGHT KNEE ASPIRATE Synovial Fluid Color LIGHT YELLOW Synovial Fluid Appearance TURBID Synovial Fluid WBC 91913 /uL Synovial Fluid RBC < 3000 /uL Synovial Fluid Polynuclear WBCs % 94.0 % Synovial Fluid Mononuclear WBCs % 6.0 % Synovial Fluid Crystals White Blood Count 10.14 K/uL Red Blood Count 4.78 M/uL Hemoglobin 12.9 g/dL Hematocrit 39.7 % Mean Corpuscular Volume 83.1 fL Mean Corpuscular Hemoglobin 27.0 pg Mean Corpuscular Hemoglobin Concent 32.5 g/dl RDW Standard Deviation 44.4 fL RDW Coefficient of Variation 14.5 % Platelet Count 353 K/uL Mean Platelet Volume 9.6 fL Sodium Level 137 mmol/L Potassium Level 3.5 mmol/L Chloride Level 104 mmol/L Carbon Dioxide Level 27 mmol/L Anion Gap 6.0 mmol/L Blood Urea Nitrogen 9 mg/dl Creatinine 0.69 mg/dl Est Creatinine Clear Calc Drug Dose 191.5 ml/min Estimated GFR () 135.7 Estimated GFR (Non- 117.1 BUN/Creatinine Ratio 12.6 Random Glucose 112 mg/dl Calcium Level 8.4 mg/dl Assessment and Plan 42 yo male with pMHx of HTN and GERD who presents with recurrent infection of right knee joint despite washout on Apr 04, 2017 with 4 weeks of treatment with daptomycin + 2 weeks with ertapenem via PICC line and then PO Bactrim. S/p right knee arthrocentesis in the ER Septic right knee joint - 06/05 OR right knee wash out. IV vanco - given history of MRSA infections stemming from an ankle surgery a year ago. - ID consulted Dr. Alexander - Pain management with Tylenol and morphine HTN lisinopril/HCTz Depression- Patient appears depressed. Consider of SSRI VTE ppx SCDs Full Code
[2017-06-05] MEDS: OXYCODONE HCL IR 5 MG TAB (IMMEDIATE RELEASE) PO PRN (19:52)
[2017-06-05] MEDS ORDERED: ALPRAZOLAM 0.5 MG TAB PO ONE (21:00)
[2017-06-05] MEDS: ASPIRIN 81 MG ECTAB PO SCH (22:08)
[2017-06-05] MEDS: ACETAMINOPHEN 500 MG TAB PO SCH (22:09)
[2017-06-05] MEDS: KETOROLAC TROMETHAMINE 30 MG/ML VIAL IV. SCH (22:14)
[2017-06-06] MEDS: OXYCODONE HCL IR 5 MG TAB (IMMEDIATE RELEASE) PO PRN ×6 (00:42→23:24)
[2017-06-06] MEDS: KETOROLAC TROMETHAMINE 30 MG/ML VIAL IV. SCH ×4 (02:42→21:23)
[2017-06-06 03:31] VITALS: BP 106/68; PULSE 69; TEMP 36.4; O2SAT 94
[2017-06-06] MEDS ORDERED: VANCOMYCIN TROUGH ONE (04:30)
[2017-06-06 04:45] LABS: HEMATOCRIT 37.4 % (42-52); HEMOGLOBIN 12.3 g/dL (14.0-18.0); MEAN CELL VOLUME 82.9 fL (80-100); MEAN CORPUSCULAR HEMOGLOBIN 27.3 pg (25-34); MEAN CORPUSCULAR HGB CONC 32.9 g/dl (32-36); MEAN PLATELET VOLUME 9.2 fL (7.4-10.4); PLATELET COUNT 355 K/uL (130-400); RED CELL DISTRIBUTION WIDTH CV 14.5 % (11.5-14.5); RED CELL DISTRIBUTION WIDTH SD 44.2 fL (36.4-46.3); WHITE BLOOD COUNT 7.71 K/uL (4.8-10.8)
[2017-06-06] MEDS: VANCOMYCIN IV 1,500 MG in SODIUM CHLORIDE 0.9% 500ML 500 ML IV SCH (04:51)
[2017-06-06] MEDS: ACETAMINOPHEN 500 MG TAB PO SCH ×3 (04:52→21:23)
[2017-06-06 05:09] LABS: CALCIUM 8.3 mg/dl (8.5-10.1); CREATININE 0.79 mg/dl (0.60-1.40); POTASSIUM 3.8 mmol/L (3.5-5.1)
[2017-06-06 07:00] VITALS: BP 120/76; PULSE 73; TEMP 36.5; O2SAT 96
--- NOTE | 2017-06-06 07:59 | OPERATIVE REPORT ---
DATE OF OPERATION: 06/05/2017 PREOPERATIVE DIAGNOSIS: Septic right knee. POSTOPERATIVE DIAGNOSIS: Septic right knee. PROCEDURE: Arthroscopic synovectomy and irrigation and debridement, right knee. SURGEON: Tyrel Martinez MD ANESTHESIA: General. COMPLICATIONS: None. DESCRIPTION OF PROCEDURE: Following induction of adequate general anesthesia, patient's right leg was exsanguinated with elevation and tourniquet was inflated to 325 mmHg. The anterolateral portal was used for insertion of the arthroscope. Through the medial portal, a 5.5 mm incisor blade was placed and gross purulence was noted. The fluid was cultured. A shaver was used to both perform synovectomy of any suspicious appearing tissue as well as an outflow cannula for a total of 9 mL of sterile saline. Following this, a small Hemovac drain was placed through the lateral portal. It was not sewn in place. Sterile dressing of Adaptic, 4x4s, sterile Webril and double length Gonsalo was applied. The patient tolerated the procedure well. I attest to the content of the Intraoperative Record and any orders documented therein. Any exception s are noted below.
[2017-06-06] MEDS: ASPIRIN 81 MG ECTAB PO SCH ×2 (08:30→21:23)
[2017-06-06] MEDS: LISINOPRIL/HCTZ 20/25MG TAB PO SCH (08:30)
[2017-06-06] MEDS: PANTOprazole SOD 40 MG TAB PO SCH (08:30)
[2017-06-06] MEDS: SODIUM CHLORIDE 0.9% 1000ML 1,000 ML IV SCH ×2 (08:42→16:39)
[2017-06-06 10:55] VITALS: BP 129/77
--- NOTE | 2017-06-06 11:31 | Orthopedic Progress Note ---
Orthopedic Progress Note Date of Service Jun 06, 2017. Subjective Post OP Day: 1 Reports: feeling well, complaints (pain off and on) Objective calves soft nontender, N/V intact, dressing C/D/I, A&O x3, toes mobile Date Time Temp Pulse Resp B/P (MAP) Pulse Ox O2 Delivery O2 Flow Rate FiO2 06/06/17 07:30 Room Air 06/06/17 07:00 36.5 73 16 120/76 (91) 96 Room Air 06/06/17 03:31 36.4 69 15 106/68 (81) 94 Room Air 06/05/17 23:20 Room Air 06/05/17 23:12 36.7 79 16 112/69 (83) 96 Room Air 06/05/17 20:26 36.7 79 17 126/73 (90) 96 Room Air 06/05/17 19:25 36.5 87 17 114/73 (87) 93 Nasal Cannula 1.0 06/05/17 18:25 36.2 85 17 114/71 (85) 92 Nasal Cannula 1.0 06/05/17 17:54 83 18 151/82 (105) 95 Nasal Cannula 1.0 06/05/17 17:25 36.4 57 16 126/67 (86) 96 Nasal Cannula 2.0 06/05/17 17:25 96 Nasal Cannula 2.0 06/05/17 17:25 96 Nasal Cannula 2.0 06/05/17 17:00 58 12 103/66 95 Nasal Cannula 2 06/05/17 16:45 60 16 123/66 95 Nasal Cannula 2 06/05/17 16:35 36.3 75 20 118/62 97 Nasal Cannula 2 06/05/17 16:25 93 19 105/50 96 Nasal Cannula 2 06/05/17 16:15 58 17 115/69 94 Nasal Cannula 2 06/05/17 16:05 61 12 130/69 94 Nasal Cannula 2 06/05/17 15:55 69 16 114/67 97 Oxymask 10 06/05/17 15:45 61 12 127/65 97 Oxymask 10 06/05/17 15:37 36.0 68 16 132/79 97 Oxymask 10 Laboratory Results 24 Hours: Test 06/06/17 04:29 Hematocrit 37.4 % Hemoglobin 12.3 g/dL Assessment & Plan Assessment: POD 1 s/p Right Knee Arthroscopic I&D CX's showing MSSA from knee aspirate. Surgical cx's pending Plan: Continue IV antibx as per Dr Alexander's recommendations. Dressing change Friday Likely will need PICC line Inhouse Planning Pain Management: Toradol, Dilaudid, PO Tylenol, Oxy IR DVT Prophylaxis: TEDs, SCDs, ASA
[2017-06-06 11:36] VITALS: BP 124/75; PULSE 83; TEMP 36.6; O2SAT 93
[2017-06-06] MEDS ORDERED: ALPRAZOLAM 0.5 MG TAB PO PRN ×3 (11:45→18:15)
[2017-06-06] MEDS ORDERED: VANCOMYCIN IV 1,250 MG in SODIUM CHLORIDE 0.9% 500ML 500 ML IV SCH (14:00)
[2017-06-06] MEDS ORDERED: VANCOMYCIN IV 1,250 MG in SODIUM CHLORIDE 0.9% 250ML 250 ML IV SCH (14:00)
--- NOTE | 2017-06-06 14:57 | Pharmacy Progress Note ---
Pharmacy Abx Dose Short Note Date of Service Jun 06, 2017. Assessment & Plan Assessment 42 year old male receiving Vancomycin 1500 mg IV every 8 hours for treatment of septic right knee infection * Day # 3 of antimicrobial therapy this admission * Patient was on daptomycin x 4 weeks, then changed to ertapenem x 2 weeks due to CPK elevations on dapto, then Bactrim * Joint culture growing MSSA GRAM STAIN Final 06/05/17 RESULT MANY WBCs SEEN NO ORGANISMS SEEN JOINT FLUID/SPACE CULTURE Final 06/06/17-915 Organism 1 STAPHYLOCOCCUS AUREUS QUANITY FEW SENS SENSITIVITY TO FOLLOW 1. STAPHYLOCOCCUS AUREUS Target Route Dose RX AB Cost M.I.C. IQ ------ ----- ------ -- ------ -------- - ------ TRIMET/SULFA S <=0.5/ 9.5 * OXACILLIN S <=0.25 VANCOMYCIN S 2 ERYTHROMYCIN S <=0.5 TETRACYCLINE S <=4 CLINDAMYCIN S <=0.5 DAPTOMYCIN S <=0.5 S = SENSITIVE I = INTERMEDIATE R = RESISTANT Plan Vancomycin * Trough level of 21.2 mcg/mL is supratherapeutic. * Decreased dose to 1250 mg IV every 8 hours * Discussed case with Dr. Alexander -> change to Ancef 2000 mg IV every 9 hours for MSSA Pharmacy will continue to follow and will adjust dose/frequency as necessary. Thank you.
[2017-06-06 15:41] VITALS: BP 124/77; PULSE 80; TEMP 36.6; O2SAT 96
[2017-06-06] MEDS ORDERED: VENLAFAXINE HCL XR 37.5 MG CAPXR PO ONE (17:45)
--- NOTE | 2017-06-06 17:52 | Progress Note ---
Subjective Date of Service: Jun 06, 2017. Subjective this pt is doing well, we spent extended visit up to 35 minutes face to face time discussing his anxiety and depression. He is overly concerned with his recurrent infection and his overall health. Problem List Medical Problems: (1) Fatigue Status: Acute (2) Heat exhaustion Status: Acute Review of Systems Constitutional: + weakness, + fatigue, No fever, No chills Respiratory: No cough, No shortness of breath, No dyspnea on exertion Cardiac: No chest pain, No edema Abdomen: No pain, No nausea, No vomiting, No diarrhea Musculoskeletal: + joint pain, + muscle pain, + swelling Neurologic: No memory loss, No weakness Psychiatric: No depression symptoms, No anhedonism Objective Vital Signs Date Time Temp Pulse Resp B/P (MAP) Pulse Ox O2 Delivery O2 Flow Rate FiO2 06/06/17 15:41 36.6 80 17 124/77 (93) 96 Room Air 06/06/17 15:18 Room Air 06/06/17 11:36 36.6 83 16 124/75 (91) 93 Room Air 06/06/17 07:30 Room Air 06/06/17 07:00 36.5 73 16 120/76 (91) 96 Room Air 06/06/17 03:31 36.4 69 15 106/68 (81) 94 Room Air 06/05/17 23:20 Room Air 06/05/17 23:12 36.7 79 16 112/69 (83) 96 Room Air 06/05/17 20:26 36.7 79 17 126/73 (90) 96 Room Air 06/05/17 19:25 36.5 87 17 114/73 (87) 93 Nasal Cannula 1.0 06/05/17 18:25 36.2 85 17 114/71 (85) 92 Nasal Cannula 1.0 06/05/17 17:54 83 18 151/82 (105) 95 Nasal Cannula 1.0 Physical Exam General Appearance: WD/WN, + mild distress Eyes: normal inspection, sclerae normal Neck: supple, no JVD Respiratory/Chest: chest non-tender, lungs clear, normal breath sounds Cardiovascular: regular rate, rhythm, no murmur Abdomen: normal bowel sounds, non tender, soft Neurologic/Psychiatric: alert, oriented x 3 Skin: normal color Laboratory Results Last 24 Hours Test 06/06/17 04:29 White Blood Count 7.71 K/uL Red Blood Count 4.51 M/uL Hemoglobin 12.3 g/dL Hematocrit 37.4 % Mean Corpuscular Volume 82.9 fL Mean Corpuscular Hemoglobin 27.3 pg Mean Corpuscular Hemoglobin Concent 32.9 g/dl RDW Standard Deviation 44.2 fL RDW Coefficient of Variation 14.5 % Platelet Count 355 K/uL Mean Platelet Volume 9.2 fL Sodium Level 137 mmol/L Potassium Level 3.8 mmol/L Chloride Level 103 mmol/L Carbon Dioxide Level 28 mmol/L Anion Gap 6.0 mmol/L Blood Urea Nitrogen 12 mg/dl Creatinine 0.79 mg/dl Est Creatinine Clear Calc Drug Dose 167.3 ml/min Estimated GFR () 128.4 Estimated GFR (Non- 110.8 BUN/Creatinine Ratio 15.1 Random Glucose 107 mg/dl Calcium Level 8.3 mg/dl Vancomycin Level Trough 21.2 mcg/ml Assessment and Plan 42 yo male with pMHx of HTN and GERD who presents with recurrent infection of right knee joint despite washout on Apr 04, 2017 with 4 weeks of treatment with daptomycin + 2 weeks with ertapenem via PICC line and then PO Bactrim. S/p right knee arthrocentesis in the ER Septic right knee joint - 06/05 OR right knee wash out. IV vanco -proves to be mssa, given history of MRSA infections stemming from an ankle surgery a year ago. - ID consulted Dr. Alexander will order Transthoracic echo - Pain management with Tylenol and morphine HTN lisinopril/HCTz Depression- Patient appears depressed. will start effexor and keep xanax VTE ppx SCDs Full Code
--- NOTE | 2017-06-06 18:21 | Infectious Disease Progress Nt ---
Progress Note Date of Service Jun 06, 2017. Subjective Pt evaluation today including: conversation w/ patient, conversation w/ family , physical exam, chart review, lab review, review of studies, conversation w/ sediment remediation consultant, review of inpatient medication list Patient offers no new complaints today. Pain controlled. Remains afebrile. Cultures growing methicillin sensitive Staph aureus. All Other Systems: Reviewed and Negative Medications Current Inpatient Medications Medications (Trade) Dose Ordered Sig/Kb Route Start Time Stop Time Status Last Admin Dose Admin Acetaminophen (Tylenol Tab) 650 mg Q4H PRN PO 06/04/17 21:45 07/04/17 21:44 Future Hold Magnesium Hydroxide (Milk Of Magnesia Susp) 30 ml Q6H PRN PO 06/04/17 21:45 07/04/17 21:44 Polyethylene (Miralax Powder Packet) 17 gm DAILY PRN PO 06/04/17 21:45 07/04/17 21:44 HCTZ/Lisinopril (Prinzide 20-25MG Tab) 1 tab DAILY PO 06/05/17 09:00 07/05/17 08:59 06/06/17 08:30 1 TAB Ibuprofen (Motrin Tab) 800 mg Q8 PRN PO 06/04/17 21:45 07/04/17 21:44 Pantoprazole Sodium (Protonix Tab) 40 mg DAILY PO 06/05/17 09:00 07/05/17 08:59 06/06/17 08:30 40 MG Sodium Chloride 1,000 ml @ 100 mls/hr Q10H IV 06/05/17 00:00 07/05/17 00:00 06/06/17 16:39 100 MLS/HR Hydromorphone HCl (Dilaudid Inj) 0.5 mg Q4HWA PRN IV 06/05/17 08:45 06/19/17 08:44 06/05/17 09:18 0.5 MG Ketorolac Tromethamine (Toradol Inj) 30 mg Q6H IV. 06/05/17 16:00 06/07/17 15:59 06/06/17 14:36 30 MG Oxycodone HCl (Roxicodone Immediate Rel Tab) 1-2 TABS FOR PAIN 1 TABLET ... Q4H PRN PO 06/05/17 15:15 06/19/17 15:14 06/06/17 14:44 10 MG Acetaminophen (Tylenol Tab) 1,000 mg Q8 PO 06/05/17 22:00 07/05/17 21:59 06/06/17 13:45 1,000 MG Magnesium Hydroxide (Milk Of Magnesia Susp) 30 ml Q6H PRN PO 06/05/17 15:15 07/05/17 15:14 Diphenhydramine HCl (Benadryl Cap) 25 mg Q8H PRN PO 06/05/17 15:15 07/05/17 15:14 06/05/17 20:07 25 MG Al Hydrox/Mg Hydrox/Simethicone (Maalox Max Susp) 15 ml Q4H PRN PO 06/05/17 15:15 07/05/17 15:14 Ondansetron HCl (Zofran Inj) 4 mg Q6H PRN IV 06/05/17 15:15 07/05/17 15:14 Aspirin (Ecotrin Tab) 81 mg BID PO 06/05/17 21:00 07/05/17 20:59 06/06/17 08:30 81 MG Cefazolin Sodium 2000 mg/Syringe 15 ml @ 3.75 mls/ min Q8H IV 06/06/17 22:00 07/17/17 20:59 Venlafaxine HCl (effeXOR EXTENDED REL CAP) 37.5 mg QAM PO 06/07/17 09:00 07/07/17 08:59 Alprazolam (Xanax Tab) 1 mg Q8H PRN PO 06/06/17 17:45 07/06/17 17:44 06/06/17 18:04 0.5 MG Alprazolam (Xanax Tab) 0.5 mg HS PRN PO 06/06/17 18:15 07/06/17 11:44 UNV Objective Vital Signs Date Time Temp Pulse Resp B/P (MAP) Pulse Ox O2 Delivery O2 Flow Rate FiO2 06/06/17 15:41 36.6 80 17 124/77 (93) 96 Room Air 06/06/17 15:18 Room Air 06/06/17 11:36 36.6 83 16 124/75 (91) 93 Room Air 06/06/17 07:30 Room Air 06/06/17 07:00 36.5 73 16 120/76 (91) 96 Room Air 06/06/17 03:31 36.4 69 15 106/68 (81) 94 Room Air 06/05/17 23:20 Room Air 06/05/17 23:12 36.7 79 16 112/69 (83) 96 Room Air 06/05/17 20:26 36.7 79 17 126/73 (90) 96 Room Air 06/05/17 19:25 36.5 87 17 114/73 (87) 93 Nasal Cannula 1.0 06/05/17 18:25 36.2 85 17 114/71 (85) 92 Nasal Cannula 1.0 Physical Exam General Appearance: WD/WN, no apparent distress Eyes: normal inspection, EOMI, sclerae normal ENT: normal ENT inspection, hearing grossly normal, pharynx normal Neck: supple, no adenopathy, thyroid normal, trachea midline Respiratory/Chest: chest non-tender, lungs clear, normal breath sounds, no respiratory distress Cardiovascular: regular rate, rhythm, no gallop, no murmur Abdomen: normal bowel sounds, non tender, soft, no organomegaly Extremities: non-tender, no calf tenderness, + pertinent finding (Dressing in place right knee) Neurologic/Psychiatric: alert, oriented x 3 Skin: normal color, warm/dry, no rash Lymphatic: no adenopathy Laboratory Results RUN DATE: 06/06/17 [facility] LAB PAGE 1 RUN TIME: 915 Specimen Inquiry PATIENT: BREE CROFT LOC: [facility] U # : [id number] AGE/SX: 42/M ROOM: 84 REG : 06/04/[address]: Avery Reynolds M.D : 1975 BED: 2 DIS : STATUS: ADM IN TLOC: SPEC #: [id number] LAURA: 06/04/17 STATUS: COMP REQ #: [id number] RECD: 06/04/[address]: Nury Washington CRNP SOURCE: JOINT FLSP ENTR: 06/04/[address] [facility] [address]: Joseph GreenDFide SPDESC: KNEE RIGHT John Leija M.D. ORDERED: JEISON FL/SP CU/SM Procedure Result Verified Site GRAM STAIN Final 06/05/17 RESULT MANY WBCs SEEN NO ORGANISMS SEEN JOINT FLUID/SPACE CULTURE Final 06/06/17 Organism 1 STAPHYLOCOCCUS AUREUS QUANITY FEW SENS SENSITIVITY TO FOLLOW 1. STAPHYLOCOCCUS AUREUS Target Route Dose RX AB Cost M.I.C. IQ ------ ----- ------ -- ------ -------- - ------ TRIMET/SULFA S <=0.5/ 9.5 * OXACILLIN S <=0.25 VANCOMYCIN S 2 ERYTHROMYCIN S <=0.5 TETRACYCLINE S <=4 CLINDAMYCIN S <=0.5 DAPTOMYCIN S <=0.5 S = SENSITIVE I = INTERMEDIATE R = RESISTANT END OF REPORT Last 24 Hours Test 06/06/17 04:29 White Blood Count 7.71 K/uL Red Blood Count 4.51 M/uL Hemoglobin 12.3 g/dL Hematocrit 37.4 % Mean Corpuscular Volume 82.9 fL Mean Corpuscular Hemoglobin 27.3 pg Mean Corpuscular Hemoglobin Concent 32.9 g/dl RDW Standard Deviation 44.2 fL RDW Coefficient of Variation 14.5 % Platelet Count 355 K/uL Mean Platelet Volume 9.2 fL Sodium Level 137 mmol/L Potassium Level 3.8 mmol/L Chloride Level 103 mmol/L Carbon Dioxide Level 28 mmol/L Anion Gap 6.0 mmol/L Blood Urea Nitrogen 12 mg/dl Creatinine 0.79 mg/dl Est Creatinine Clear Calc Drug Dose 167.3 ml/min Estimated GFR () 128.4 Estimated GFR (Non- 110.8 BUN/Creatinine Ratio 15.1 Random Glucose 107 mg/dl Calcium Level 8.3 mg/dl Vancomycin Level Trough 21.2 mcg/ml Assessment and Plan Persistent Staph aureus infection of right knee with methicillin sensitive strain, now status post repeat arthroscopy. Patient will again require IV antibiotics, will be on cefazolin pending insurance review of coverage for outpatient therapy. Will follow.
[2017-06-06] MEDS ORDERED: NURSING VERBAL MED ORDER ONE (18:45)
[2017-06-06] MEDS: CEFAZOLIN IV 2,000 MG in SYRINGE 0 ML IV SCH (21:23)
[2017-06-06] MEDS: ALPRAZOLAM 0.5 MG TAB PO PRN (21:32)
[2017-06-06 23:00] VITALS: BP 128/77; PULSE 82; TEMP 36.7; O2SAT 96
[2017-06-07] MEDS: SODIUM CHLORIDE 0.9% 1000ML 1,000 ML IV SCH ×2 (03:24→14:28)
[2017-06-07] MEDS: KETOROLAC TROMETHAMINE 30 MG/ML VIAL IV. SCH ×3 (03:24→14:32)
[2017-06-07] MEDS: OXYCODONE HCL IR 5 MG TAB (IMMEDIATE RELEASE) PO PRN ×4 (05:39→19:39)
[2017-06-07] MEDS: CEFAZOLIN IV 2,000 MG in SYRINGE 0 ML IV SCH (05:39)
[2017-06-07] MEDS: ACETAMINOPHEN 500 MG TAB PO SCH ×3 (05:39→20:41)
[2017-06-07] MEDS: PANTOprazole SOD 40 MG TAB PO SCH (06:55)
[2017-06-07 07:35] VITALS: BP 125/79; PULSE 76; TEMP 36.5; O2SAT 96
[2017-06-07 07:58] LABS: HEMATOCRIT 38.3 % (42-52); HEMOGLOBIN 12.5 g/dL (14.0-18.0); MEAN CELL VOLUME 84.5 fL (80-100); MEAN CORPUSCULAR HEMOGLOBIN 27.6 pg (25-34); MEAN CORPUSCULAR HGB CONC 32.6 g/dl (32-36); MEAN PLATELET VOLUME 9.7 fL (7.4-10.4); PLATELET COUNT 377 K/uL (130-400); RED CELL DISTRIBUTION WIDTH CV 14.3 % (11.5-14.5); RED CELL DISTRIBUTION WIDTH SD 44.7 fL (36.4-46.3); WHITE BLOOD COUNT 9.55 K/uL (4.8-10.8)
[2017-06-07 08:38] LABS: CALCIUM 7.9 mg/dl (8.5-10.1); CREATININE 0.93 mg/dl (0.60-1.40); POTASSIUM 3.9 mmol/L (3.5-5.1)
[2017-06-07] MEDS: ASPIRIN 81 MG ECTAB PO SCH ×2 (09:16→20:41)
[2017-06-07] MEDS: VENLAFAXINE HCL XR 37.5 MG CAPXR PO SCH (09:16)
[2017-06-07] MEDS: LISINOPRIL/HCTZ 20/25MG TAB PO SCH (09:16)
[2017-06-07] MEDS: ALPRAZOLAM 0.5 MG TAB PO PRN ×2 (09:19→22:14)
[2017-06-07] MEDS: CEFTRIAXONE SOD INJ 2,000 MG in DEXTROSE 5% 50ML 50 ML IV SCH (12:19)
[2017-06-07 15:15] VITALS: O2SAT 97
--- NOTE | 2017-06-07 15:19 | Orthopedic Progress Note ---
Orthopedic Progress Note Date of Service Jun 07, 2017. Subjective Reports: feeling well, complaints (Mild to moderate right knee pain), Denies: chest pain, SOB, nausea / vomiting, light headedness, calf pain Additional Notes: Pain moderately well controlled. No fever or chills. Objective calves soft nontender, N/V intact, capillary refill less than 2 sec., dressing C /D/I, A&O x3, toes mobile, hemovac drainage Drain in place R LE. Date Time Temp Pulse Resp B/P (MAP) Pulse Ox O2 Delivery O2 Flow Rate FiO2 06/07/17 07:35 36.5 76 16 125/79 (94) 96 Room Air 06/07/17 07:17 Room Air 06/06/17 23:00 36.7 82 18 128/77 (94) 96 Room Air 06/06/17 19:20 Room Air 06/06/17 15:41 36.6 80 17 124/77 (93) 96 Room Air 06/06/17 15:18 Room Air Laboratory Results 24 Hours: Test 06/07/17 07:25 Hematocrit 38.3 % Hemoglobin 12.5 g/dL Assessment & Plan Assessment: POD #2 s/p Right Knee Arthroscopic I&D by Dr Martinez CX's showing MSSA from knee aspirate. Surgical cx's MSSA Scheduled for Echocardiogram to R/O bacterial endocarditis PICC line and 6 wks IV Anbx recommended Consider MRI w/ contrast as an outpatient Plan: Continue IV antibx as per Dr Alexander's recommendations. Dressing change Friday Likely will need PICC line Inhouse Planning Pain Management: Toradol, Dilaudid, PO Tylenol, Oxy IR DVT Prophylaxis: TEDs, SCDs, ASA
[2017-06-07 15:23] VITALS: BP 128/81; PULSE 77; TEMP 36.6; O2SAT 97
[2017-06-07] MEDS: HYDROmorphone INJ 0.5 MG/0.5 ML SYR IV PRN ×2 (16:20→21:47)
--- NOTE | 2017-06-07 16:44 | Progress Note ---
Subjective Date of Service: Jun 07, 2017. Subjective pt has severe anxiety about his treatment plan, I personally spoke to the infectious disease specialist and started progress to PICC line placement pain control is good and no issues with starting effexor Problem List Medical Problems: (1) Fatigue Status: Acute (2) Heat exhaustion Status: Acute Review of Systems Constitutional: No fever, No chills, No weakness, No fatigue Respiratory: No cough, No sputum, No shortness of breath Cardiac: No chest pain Abdomen: No pain, No nausea, No vomiting, No diarrhea Musculoskeletal: + joint pain, + muscle pain, + swelling Neurologic: No memory loss, No weakness Psychiatric: No depression symptoms, No anhedonism Objective Vital Signs Date Time Temp Pulse Resp B/P (MAP) Pulse Ox O2 Delivery O2 Flow Rate FiO2 06/07/17 15:23 36.6 77 16 128/81 (97) 97 Room Air 06/07/17 15:15 97 Room Air 06/07/17 07:35 36.5 76 16 125/79 (94) 96 Room Air 06/07/17 07:17 Room Air 06/06/17 23:00 36.7 82 18 128/77 (94) 96 Room Air 06/06/17 19:20 Room Air Physical Exam General Appearance: WD/WN, + mild distress, + obese Eyes: normal inspection, sclerae normal Respiratory/Chest: chest non-tender, lungs clear, normal breath sounds Cardiovascular: regular rate, rhythm, no murmur Abdomen: normal bowel sounds, non tender, soft Extremities: + pedal edema, + swelling Neurologic/Psychiatric: alert, oriented x 3 Laboratory Results Last 24 Hours Test 06/07/17 07:25 White Blood Count 9.55 K/uL Red Blood Count 4.53 M/uL Hemoglobin 12.5 g/dL Hematocrit 38.3 % Mean Corpuscular Volume 84.5 fL Mean Corpuscular Hemoglobin 27.6 pg Mean Corpuscular Hemoglobin Concent 32.6 g/dl RDW Standard Deviation 44.7 fL RDW Coefficient of Variation 14.3 % Platelet Count 377 K/uL Mean Platelet Volume 9.7 fL Sodium Level 137 mmol/L Potassium Level 3.9 mmol/L Chloride Level 105 mmol/L Carbon Dioxide Level 29 mmol/L Anion Gap 3.0 mmol/L Blood Urea Nitrogen 16 mg/dl Creatinine 0.93 mg/dl Est Creatinine Clear Calc Drug Dose 142.1 ml/min Estimated GFR () 116.9 Estimated GFR (Non- 100.9 BUN/Creatinine Ratio 17.1 Random Glucose 94 mg/dl Calcium Level 7.9 mg/dl Assessment and Plan 42 yo male with pMHx of HTN and GERD who presents with recurrent infection of right knee joint despite washout on Apr 04, 2017 with 4 weeks of treatment with daptomycin + 2 weeks with ertapenem via PICC line and then PO Bactrim. S/p right knee arthrocentesis in the ER Septic right knee joint - 06/05 OR right knee wash out. -proves to be mssa, will convert to Rocephin 2 gms daily via picc - ID consulted, pending, Transthoracic echo - Pain management with Tylenol and morphine HTN lisinopril/HCTz Depression- Patient appears depressed. tolerating effexor and keep xanax VTE ppx SCDs, early ambulation Full Code
--- NOTE | 2017-06-07 18:37 | ECHOCARDIOGRAM REPORT ---
*NOTICE TO RECEIVING LIBERTARIAN AGENCY This information is strictly Confidential and protected under [place] law. [place] law prohibits you from making any further disclosure of this information unless further disclosure is expressly permitted by the written consent of the person to whom it pertains or is authorized by law. A general authorization for the release of medical or other information is not sufficient for this purpose. Hospital accepts no responsibility if the information is made available to any other person, INCLUDING THE PATIENT. Interpretation Summary * Name: BREE CROFT Study Date: 06/07/2017 02:35 PM BP: 125/79 mmHg * Patient Location: C.MSN\S\N384\S\2 HR: 74 * : 1975 (M/d/yyyy) Gender: Male Height: 71 in * Age: 42 yrs Ethnicity: CA Weight: 286 lb * Ordering Physician: Attila Hendrix * Referring Physician: Tyrel Martinez * Performed By: Jenny Jameson RDCS * * Reason For Study: ENDOCARDITIS * BSA: 2.5 m2 * There is no evidence of a mass or vegetation. This does not rule out endocarditis. * -- Conclusions -- * Left ventricular systolic function is normal. * Normal diastolic function Procedure Details * A complete two-dimensional transthoracic echocardiogram was performed (2D, M-mode, Doppler and color flow Doppler). Left Ventricle * The left ventricle is grossly normal size. * There is normal left ventricular wall thickness. * Ejection Fraction = 55-60%. * Left ventricular systolic function is normal. * Normal diastolic function * The left ventricular wall motion is normal. Right Ventricle * The right ventricle is normal in size and function. * The right ventricular systolic function is normal as assessed by tricuspid annular plane systolic excursion (TAPSE) (normal >1.5 cm). Atria * The left atrial size is normal. * Right atrial size is normal. Mitral Valve * The mitral valve is grossly normal. * Significant mitral regurgitation is absent. Tricuspid Valve * The tricuspid valve is not well visualized, but is grossly normal. * Significant tricuspid regurgitation is absent. Aortic Valve * The aortic valve is normal in structure and function. * The aortic valve is trileaflet. * There is no aortic valvular vegetation. * No hemodynamically significant valvular aortic stenosis. * There is no significant aortic regurgitation. Great Vessels * The aortic root is normal size. Pericardium/Pleural * There is no pericardial effusion. MMode 2D Measurements and Calculations IVSd 1.1 cm IVSs 1.6 cm LVIDd 5.2 cm LVIDs 3.7 cm LVPWd 1.3 cm LVPWs 1.9 cm IVS/LVPW 0.84 FS 29.3 % EDV(Teich) 129.2 ml ESV(Teich) 57.1 ml EF(Teich) 55.8 % EDV(cubed) 140.2 ml ESV(cubed) 49.5 ml EF(cubed) 64.7 % % IVS thick 41.1 % % LVPW thick 44.6 % LV mass(C)d 260.8 grams LV mass(C)dI 106.2 grams/m\S\2 LV mass(C)s 273.3 grams LV mass(C)sI 111.3 grams/m\S\2 SV(Teich) 72.1 ml SI(Teich) 29.4 ml/m\S\2 SV(cubed) 90.6 ml SI(cubed) 36.9 ml/m\S\2 Ao root diam 3.9 cm Ao root area 11.8 cm\S\2 LA dimension 3.5 cm LA/Ao 0.90 LVAd ap4 41.6 cm\S\2 LVLd ap4 9.7 cm EDV(MOD-sp4) 145.8 ml EDV(sp4-el) 151.1 ml LVAs ap4 23.5 cm\S\2 LVLs ap4 8.1 cm ESV(MOD-sp4) 62.7 ml ESV(sp4-el) 57.8 ml EF(MOD-sp4) 57.0 % EF(sp4-el) 61.8 % LVAd ap2 43.2 cm\S\2 LVLd ap2 9.7 cm EDV(MOD-sp2) 156.7 ml EDV(sp2-el) 163.0 ml LVAs ap2 26.8 cm\S\2 LVLs ap2 8.4 cm ESV(MOD-sp2) 72.3 ml ESV(sp2-el) 72.9 ml EF(MOD-sp2) 53.9 % EF(sp2-el) 55.3 % LVLd %diff -0.26 % EDV(MOD-bp) 151.8 ml LVLs %diff 3.4 % ESV(MOD-bp) 68.2 ml EF(MOD-bp) 55.1 % SV(MOD-sp4) 83.1 ml SI(MOD-sp4) 33.8 ml/m\S\2 SV(MOD-sp2) 84.4 ml SI(MOD-sp2) 34.4 ml/m\S\2 SV(MOD-bp) 83.6 ml SI(MOD-bp) 34.1 ml/m\S\2 SV(sp4-el) 93.3 ml SI(sp4-el) 38.0 ml/m\S\2 SV(sp2-el) 90.1 ml SI(sp2-el) 36.7 ml/m\S\2 Doppler Measurements and Calculations MV E max santhosh 104.2 cm/sec MV A max santhosh 79.9 cm/sec MV E/A 1.3 MV dec time 0.20 sec Ao V2 max 141.6 cm/sec Ao max PG 8.0 mmHg Ao max PG (full) 4.0 mmHg LV V1 max PG 4.0 mmHg LV V1 max 100.0 cm/sec
[2017-06-07 23:10] VITALS: BP 122/78; PULSE 80; TEMP 36.5; O2SAT 96
[2017-06-08] MEDS: SODIUM CHLORIDE 0.9% 1000ML 1,000 ML IV SCH ×2 (00:40→15:35)
[2017-06-08] MEDS: ACETAMINOPHEN 500 MG TAB PO SCH ×3 (05:45→21:47)
[2017-06-08] MEDS: OXYCODONE HCL IR 5 MG TAB (IMMEDIATE RELEASE) PO PRN ×5 (05:46→23:16)
[2017-06-08] MEDS: ASPIRIN 81 MG ECTAB PO SCH (07:10)
[2017-06-08] MEDS: PANTOprazole SOD 40 MG TAB PO SCH (07:10)
[2017-06-08] MEDS: ALPRAZOLAM 0.5 MG TAB PO PRN ×2 (07:10→21:47)
[2017-06-08] MEDS: VENLAFAXINE HCL XR 37.5 MG CAPXR PO SCH (07:10)
[2017-06-08] MEDS: LISINOPRIL/HCTZ 20/25MG TAB PO SCH (07:10)
[2017-06-08] MEDS: HYDROmorphone INJ 0.5 MG/0.5 ML SYR IV PRN ×2 (07:11→15:33)
[2017-06-08 07:13] LABS: HEMATOCRIT 37.7 % (42-52); HEMOGLOBIN 12.3 g/dL (14.0-18.0); MEAN CELL VOLUME 83.6 fL (80-100); MEAN CORPUSCULAR HEMOGLOBIN 27.3 pg (25-34); MEAN CORPUSCULAR HGB CONC 32.6 g/dl (32-36); MEAN PLATELET VOLUME 9.3 fL (7.4-10.4); PLATELET COUNT 384 K/uL (130-400); RED CELL DISTRIBUTION WIDTH CV 14.2 % (11.5-14.5); RED CELL DISTRIBUTION WIDTH SD 43.5 fL (36.4-46.3); WHITE BLOOD COUNT 9.64 K/uL (4.8-10.8)
[2017-06-08 07:20] VITALS: BP 127/84; PULSE 83; TEMP 36.7; O2SAT 97
--- NOTE | 2017-06-08 10:36 | Orthopedic Progress Note ---
Orthopedic Progress Note Date of Service Jun 08, 2017. Subjective Post OP Day: 3 Reports: feeling well, Denies: chest pain, SOB, nausea / vomiting, light headedness, calf pain Objective calves soft nontender, N/V intact, capillary refill less than 2 sec., incision C /D/I, A&O x3, toes mobile, hemovac drainage (25CC LAST SHIFT, CLOUDY FLUID.) Date Time Temp Pulse Resp B/P (MAP) Pulse Ox O2 Delivery O2 Flow Rate FiO2 06/08/17 07:57 Room Air 06/08/17 07:20 36.7 83 15 127/84 (98) 97 Room Air 06/07/17 23:15 Room Air 06/07/17 23:10 36.5 80 18 122/78 (93) 96 Room Air 06/07/17 15:23 36.6 77 16 128/81 (97) 97 Room Air 06/07/17 15:15 97 Room Air Laboratory Results 24 Hours: Test 06/08/17 06:49 Hematocrit 37.7 % Hemoglobin 12.3 g/dL Assessment & Plan Assessment: POD #3 s/p Right Knee Arthroscopic I&D by Dr Martinez CX's showing MSSA from knee aspirate. Surgical cx's MSSA Scheduled for Echocardiogram to R/O bacterial endocarditis PICC line and 6 wks IV Anbx recommended Consider MRI w/ contrast as an outpatient WILL DISCUSS PATIENT WITH DR. MARTINEZ. HEMOVAC STILL DRAINING CLOUDY FLUID. WILL LEAVE IN FOR NOW. MAY CONSIDER OPEN I&D WITH EXTENSIVE DEBRIDEMENT AND PLACEMENT OF ANTIBIOTIC BEADS. Plan: Continue IV antibx as per Dr Alexander's recommendations. Dressing change Friday Likely will need PICC line Inhouse Planning Pain Management: Toradol, Dilaudid, PO Tylenol, Oxy IR DVT Prophylaxis: TEDs, SCDs, ASA
[2017-06-08] MEDS ORDERED: NURSING VERBAL MED ORDER ONE (10:45)
[2017-06-08] MEDS: CEFTRIAXONE SOD INJ 2,000 MG in DEXTROSE 5% 50ML 50 ML IV SCH (11:19)
--- NOTE | 2017-06-08 13:31 | Progress Note ---
Subjective Date of Service: Jun 08, 2017. Subjective Pt with persistent cloudy fluid draining from right knee, surgery is considering taking to or for open irrigation and possible antibiotic bead placement, pt just wants this to be treated and be completed Problem List Medical Problems: (1) Fatigue Status: Acute (2) Heat exhaustion Status: Acute Review of Systems Constitutional: + weakness, No fever, No chills, No fatigue Respiratory: No cough, No shortness of breath Cardiac: No chest pain, No edema Abdomen: No pain, No nausea, No vomiting, No diarrhea Musculoskeletal: + joint pain, + muscle pain, + swelling Male : No dysuria, No urinary frequency Psychiatric: + depression symptoms, + anxiety Objective Vital Signs Date Time Temp Pulse Resp B/P (MAP) Pulse Ox O2 Delivery O2 Flow Rate FiO2 06/08/17 07:57 Room Air 06/08/17 07:20 36.7 83 15 127/84 (98) 97 Room Air 06/07/17 23:15 Room Air 06/07/17 23:10 36.5 80 18 122/78 (93) 96 Room Air 06/07/17 15:23 36.6 77 16 128/81 (97) 97 Room Air 06/07/17 15:15 97 Room Air Physical Exam General Appearance: WD/WN, + mild distress Eyes: normal inspection, sclerae normal Neck: supple, no JVD Respiratory/Chest: chest non-tender, lungs clear, normal breath sounds Cardiovascular: regular rate, rhythm, no murmur Abdomen: normal bowel sounds, non tender, soft Extremities: no pedal edema, no calf tenderness Neurologic/Psychiatric: alert, oriented x 3 Laboratory Results Last 24 Hours Test 06/08/17 06:49 White Blood Count 9.64 K/uL Red Blood Count 4.51 M/uL Hemoglobin 12.3 g/dL Hematocrit 37.7 % Mean Corpuscular Volume 83.6 fL Mean Corpuscular Hemoglobin 27.3 pg Mean Corpuscular Hemoglobin Concent 32.6 g/dl RDW Standard Deviation 43.5 fL RDW Coefficient of Variation 14.2 % Platelet Count 384 K/uL Mean Platelet Volume 9.3 fL Assessment and Plan 42 yo male with pMHx of HTN and GERD who presents with recurrent infection of right knee joint despite washout on Apr 04, 2017 with 4 weeks of treatment with daptomycin + 2 weeks with ertapenem via PICC line and then PO Bactrim. S/p right knee arthrocentesis in the ER Septic right knee joint - 06/05 OR right knee wash out. -proves to be mssa on both cultures, 06/07 changed to Rocephin 2 gms daily via picc - ID consulted, pending, Transthoracic echo without vegetations with persistent cloudy fluid draining ortho is considering more aggressive washout and antibiotic bead placement - Pain management with Tylenol and morphine HTN lisinopril/HCTz Depression- Patient appears depressed. started effexor 06/06 and keep xanax VTE ppx SCDs, early ambulation, did hold bid asa on 06/08 in prep for or Pt started on ivf as will be npo for surgery Full Code
[2017-06-08 15:06] VITALS: BP 147/91; PULSE 88; TEMP 36.7; O2SAT 96
--- NOTE | 2017-06-08 17:00 | DIAGNOSTIC IMAGING REPORT ---
R LOWER EXT JOINT WITHOUT CLINICAL HISTORY: 42 years-old Male presenting with INFECTION, drain in place, septic joint, history of surgery in April and May, possible popliteal cyst, right knee pain. TECHNIQUE: Multisequence, multiplanar MR imaging of the right knee was performed without the use of intravenous contrast. IV contrast: None. COMPARISON: Plain radiographs from 06/04/2017. FINDINGS: Localizer images: A surgical drain in the suprapatellar recess. Bone marrow: Extensive bone marrow edema in the intercondylar region of the distal femur, which approaches the subchondral cortex of the medial aspect of the lateral femoral condyle. Bony edema also noted in the interspinous region of the tibial plateau and extending to the lateral tibial plateau. Bone marrow signal intensity changes on T1-weighted imaging are similar in extent. Articular cartilage: Complete cartilage loss of the lateral compartment and near complete cartilage loss in the medial compartment. Patchy cartilage loss also noted in the patellofemoral compartment with multiple defects in the medial patellar facet and medial trochlea. Tricompartmental osteophytosis noted. Menisci: Horizontal type tear of the posterior horn of the medial meniscus. Central intrasubstance abnormal signal intensity of the anterior horn and body of the lateral meniscus suggesting degenerative change. Radial tear of the posterior horn body junction of the lateral meniscus. Slight extrusion of the body of the lateral meniscus though the meniscocapsular ligaments are likely still intact. Cruciate ligaments: Complete tear of the anterior cruciate ligament. Mucoid degeneration of the posterior cruciate ligament. Collateral ligament: Medial collateral ligament intact. Lateral collateral ligament complex including the biceps femoris tendon, fibular collateral ligament, popliteal tendon, and iliotibial band intact. Quadriceps and patellar tendons: Quadriceps and patellar tendons intact. Knee joint effusion: Trace knee joint effusion. Infiltration of the Hoffa fat pad. Prominent popliteal cyst. Muscle: Normal muscle bulk and muscle signal intensity. IMPRESSION: 1. Extensive bony edema in the femur and tibia, which approaches the articular surface and associated extensive articular cartilage defects. This could be consistent with the given history of recent septic arthritis. Osteomyelitis if present is limited in extent 2. Tricompartmental severe degenerative change. 3. Radial type tear of the posterior horn body junction of the lateral meniscus. 4. Horizontal type tear of the posterior horn of the medial meniscus. 5. Complete tear of the anterior cruciate ligament. 6. Trace knee joint effusion with a surgical drain in place. The report will be called/faxed according to standard departmental protocol. Electronically signed by: Desmond Ovalle M.D. 06/08/2017 4:58 PM Dictated Date/Time: 06/08/2017 4:49 PM
[2017-06-08 23:10] VITALS: BP 146/90; PULSE 94; TEMP 36.7; O2SAT 97
[2017-06-09] MEDS: SODIUM CHLORIDE 0.9% 1000ML 1,000 ML IV SCH ×3 (02:31→22:17)
[2017-06-09] MEDS: ACETAMINOPHEN 500 MG TAB PO SCH ×3 (05:41→22:17)
[2017-06-09] MEDS: OXYCODONE HCL IR 5 MG TAB (IMMEDIATE RELEASE) PO PRN ×3 (05:42→22:18)
[2017-06-09 06:41] LABS: MEAN CELL VOLUME 83.5 fL (80-100); MEAN CORPUSCULAR HEMOGLOBIN 27.1 pg (25-34); MEAN CORPUSCULAR HGB CONC 32.4 g/dl (32-36); PLATELET COUNT 383 K/uL (130-400); RED CELL DISTRIBUTION WIDTH CV 14.3 % (11.5-14.5); RED CELL DISTRIBUTION WIDTH SD 43.9 fL (36.4-46.3); WHITE BLOOD COUNT 10.61 K/uL (4.8-10.8)
[2017-06-09 08:06] VITALS: BP 130/81; PULSE 78; TEMP 36.4; O2SAT 96
[2017-06-09] MEDS: VENLAFAXINE HCL XR 37.5 MG CAPXR PO SCH (09:05)
[2017-06-09] MEDS: LISINOPRIL/HCTZ 20/25MG TAB PO SCH (09:05)
[2017-06-09] MEDS: PANTOprazole SOD 40 MG TAB PO SCH (09:05)
--- NOTE | 2017-06-09 09:16 | PROGRESS NOTE ---
DATE: 06/09/2017 CHIEF COMPLAINT: Ongoing right knee sepsis. HISTORY: The patient is status post 2 arthroscopic incision and drainage for a methicillin-sensitive Staph aureus septic right knee. The patient was initially on IV then oral antibiotics and immediately after stopping the antibiotics, became infected once again. A second incision and drainage is now also growing methicillin-sensitive Staph aureus with ongoing purulent drainage. In an attempt to seek an additional source of sepsis, an MRI of the knee was performed yesterday. This MRI reveals evidence of a popliteal cyst as well as multiple other degenerative changes. This popliteal cyst likely communicates with the joint and would be ineffectively debrided arthroscopically. ASSESSMENT: Ongoing septic knee with likely infected popliteal cyst. PLAN: This patient in my opinion may need a staged procedure 1 to remove the popliteal cyst and second to repeat this incision and drainage of the knee joint. This is a surgical dissection that I have not performed in a comfortable doing. I have recommended transfer to a tertiary care center such as [facility] possibly under the care of Dr. Kaba and his service for aforementioned procedure. I have informed the patient of this and also informed him that I am perfectly willing to participate in his postoperative care if necessary.
--- NOTE | 2017-06-09 10:18 | Discharge Summary ---
Discharge Summary Date of Service Jun 09, 2017. Discharge Summary Admission Date: Jun 04, 2017 at 21:49 Discharge Date: Jun 09, 2017 Discharge Disposition: Acute care facility Principal Diagnosis: Right knee MSSA with popliteal cyst Problems/Secondary Diagnoses: Hypertension/ Obesity Immunizations: Have You Had Influenza Vaccine: Unknown History of Tetanus Vaccine?: Unknown History of Pneumococcal: Unknown History of Hepatitis B Vaccine: Unknown Medication Reconciliation New Medications: Acetaminophen (Sb Non-Aspirin Extra Stre) 500 Mg Tab 1000 MG PO Q8 for 10 Days, #60 TAB Alprazolam (Alprazolam) 0.5 Mg Tab 0.5 MG PO Q8H PRN for ANXIETY for 10 Days, #30 TAB Oxycodone HCl (Oxycodone HCl) 5 Mg Tab 5-10 MG PO Q4H PRN for Pain for 5 Days, TAB Venlafaxine Hcl (Venlafaxine Extended Rel) 37.5 Mg Cap 37.5 MG PO QAM for 10 Days, #10 CAP Continued Medications: Hctz/Lisinopril (Lisinopril/Hctz 20/25 Mg) 1 Ea Tab 1 TAB PO DAILY, TAB Ibuprofen Tab (Advil) 200 Mg Tab 800 MG PO Q8 PRN for Pain, TAB Omeprazole (Prilosec) 20 Mg Capcr 20 MG PO DAILY, CAP Discharge Exam Review of Systems Constitutional: + weakness, No fever, No chills, No fatigue Respiratory: No cough, No shortness of breath Cardiac: No chest pain, No edema Abdomen: No pain, No nausea, No vomiting, No diarrhea Musculoskeletal: + joint pain, + muscle pain, + swelling Male : No dysuria, No urinary frequency Psychiatric: + depression symptoms, + anxiety Physical Exam General Appearance: WD/WN, Eyes: normal inspection, sclerae normal Neck: supple, no JVD Respiratory/Chest: chest non-tender, lungs clear, normal breath sounds Cardiovascular: regular rate, rhythm, no murmur Abdomen: normal bowel sounds, non tender, soft Extremities: no pedal edema, no calf tenderness Neurologic/Psychiatric: alert, oriented x 3 Hospital Course 42 yo male with pMHx of HTN and GERD who presents with recurrent infection of right knee joint despite washout on Apr 04, 2017 with 4 weeks of treatment with daptomycin + 2 weeks with ertapenem via PICC line and then PO Bactrim. S/p right knee arthrocentesis in the ER Septic right knee joint -Patient had an I and D Apr 17 found to be MSSA (3 LITERS of purulent fluid) DCed on antibiotics -Patient returned on 06/04 with same problem - 06/05 OR right knee wash out arthroscopically. -proves to be mssa on both cultures, 06/07 changed to Rocephin 2 gms daily at 1130 (AM) - ID consulted, Transthoracic echo without vegetations with persistent cloudy fluid draining ortho is considering more aggressive washout and antibiotic bead placement -Currently after doing an MRI of knee and finding a popliteal cyst. Patient will need to be transferred to tertiary center [facility] for staged procedure: 1. removal of popliteal cyst 2. for another I and D. - ortho team and hospitalist team. Patient will be transferred under medicine with ortho under BLS - Pain management with Tylenol and morphine HTN lisinopril/HCTz BP is stable. Depression - Patient appears depressed. started effexor 06/06 and keep xanax No suicidal ideations VTE ppx SCDs, early ambulation, Full Code Total Time Spent: Greater than 30 minutes This includes examination of the patient, discharge planning, medication reconciliation, and communication with other providers. Discharge Instructions Please refer to the electronic Patient Visit Report (Discharge Instructions) for additional information. Follow-Up Transfer to [facility]
[2017-06-09] MEDS ORDERED: RXC5 PO (10:21)
[2017-06-09] MEDS ORDERED: VENL37.593 PO (10:21)
[2017-06-09] MEDS ORDERED: XNX5 PO (10:21)
[2017-06-09] MEDS ORDERED: ACET-24 PO (10:21)
--- NOTE | 2017-06-09 10:24 | Discharge Instructions ---
Discharge Instructions Date of Service Jun 09, 2017. Admission Reason for Admission: Septic Joint Of Right Knee Joint Discharge Discharge Diagnosis / Problem: MSSA in R knee with popliteal cyst Discharge Goals Goal(s): Decrease discomfort, Improve function Activity Recommendations Activity Limitations: as noted below Lifting Limitations: gradually increase as tolerated . Instructions / Follow-Up Instructions / Follow-Up Will be transferred to [facility] for procedure to remove popliteal cyst Patient is on 2 gr of IV ceftriaxone at 2gr daily No scripts were given for transfer. If patient requires benzos or pain medicine, please write at discharge from [facility] Diet Patient's current hospital diet: Regular Diet Discharge Diet Recommended Diet: Regular Diet Procedures Procedures Performed: Right Knee Arthroscopic Irrigation and Debridement Pending Studies Studies pending at discharge: no Medical Emergencies . Who to Call and When: Medical Emergencies: If at any time you feel your situation is an emergency, please call 911 immediately. . Non-Emergent Contact Non-Emergency issues call your: Primary Care Provider Call Non-Emergent contact if: you have a fever, you have any medication questions . . "Provider Documentation" section prepared by Gurdeep Weir. .
[2017-06-09] MEDS: HYDROmorphone INJ 0.5 MG/0.5 ML SYR IV PRN ×3 (10:28→23:56)
[2017-06-09] MEDS: CEFTRIAXONE SOD INJ 2,000 MG in DEXTROSE 5% 50ML 50 ML IV SCH (11:02)
[2017-06-09 12:01] VITALS: BP 130/81; PULSE 78; TEMP 36.4; O2SAT 96
[2017-06-09] MEDS: ALPRAZOLAM 0.5 MG TAB PO PRN ×2 (13:21→22:18)
[2017-06-09 14:07] VITALS: BP 130/85; PULSE 88; TEMP 36.7; O2SAT 95
[2017-06-09 15:19] VITALS: BP 130/75; PULSE 81; TEMP 36.8; O2SAT 95
[2017-06-09 23:05] VITALS: BP 145/87; PULSE 92; TEMP 36.7; O2SAT 97
[2017-06-10] MEDS: OXYCODONE HCL IR 5 MG TAB (IMMEDIATE RELEASE) PO PRN (05:56)
[2017-06-10] MEDS: ACETAMINOPHEN 500 MG TAB PO SCH (05:56)
[2017-06-10 06:56] LABS: HEMATOCRIT 37.4 % (42-52); HEMOGLOBIN 12.4 g/dL (14.0-18.0); MEAN CELL VOLUME 82.4 fL (80-100); MEAN CORPUSCULAR HEMOGLOBIN 27.3 pg (25-34); MEAN CORPUSCULAR HGB CONC 33.2 g/dl (32-36); PLATELET COUNT 388 K/uL (130-400); RED CELL DISTRIBUTION WIDTH CV 14.2 % (11.5-14.5); WHITE BLOOD COUNT 10.83 K/uL (4.8-10.8)
[2017-06-10] MEDS: SODIUM CHLORIDE 0.9% 1000ML 1,000 ML IV SCH (07:00)
[2017-06-10 07:23] VITALS: BP 134/84; PULSE 79; TEMP 36.7; O2SAT 94
[2017-06-10] MEDS: LISINOPRIL/HCTZ 20/25MG TAB PO SCH (07:53)
[2017-06-10] MEDS: PANTOprazole SOD 40 MG TAB PO SCH (07:53)
[2017-06-10] MEDS: VENLAFAXINE HCL XR 37.5 MG CAPXR PO SCH (07:53)
[2017-06-10] MEDS: ALPRAZOLAM 0.5 MG TAB PO PRN ×2 (07:57→08:02)
[2017-06-10] MEDS: HYDROmorphone INJ 0.5 MG/0.5 ML SYR IV PRN (07:57)
== END 2017-06-10 08:10 | disposition short-term general hospital (02) | DRG 550 ==
LOC: C.EDB 17:33 → C.MSN 21:49 → ENRESERV 22:04
PROVIDERS: ADMIT Hospitalist; ATTEND Internal Medicine
PROC: 0Y9F3ZX Drainage of Right Knee Region, Percutaneous Approach, Diagnostic (ICD-10-PCS; principal; 2017-06-04)
PROC: 0Y9 Anatomical Regions, Lower Extremities, Drainage (ICD-10-PCS; 2017-06-05)
DX: M00.861 Arthritis due to other bacteria, right knee (principal); B95.61 Methicillin susceptible Staphylococcus aureus infection as the cause of diseases classified elsewhere; M71.21 Synovial cyst of popliteal space [Baker], right knee; K21.9 Gastro-esophageal reflux disease without esophagitis; F17.200 Nicotine dependence, unspecified, uncomplicated; F32.9 Major depressive disorder, single episode, unspecified; I10 Essential (primary) hypertension; Z79.899 Other long term (current) drug therapy; Z88.1 Allergy status to other antibiotic agents; E66.9 Obesity, unspecified; Z68.39 Body mass index [BMI] 39.0-39.9, adult